=== PATIENT | male | born 1955 | race Caucasian/White ===

== ENCOUNTER 2020-03-30 08:59 | Outpatient (REF) | payer BC, SELFPAY | END 2020-03-30 09:00 | disposition home or self-care (01) | LOC: HO.LAB 08:59 | PROVIDERS: Visit Provider Internal Medicine | DX: Z20.828 Contact with and (suspected) exposure to other viral communicable diseases (principal) | CPT/HCPCS: C9803; U0003 ==

== ENCOUNTER 2020-06-02 12:42 | Outpatient (REF) | payer BC, SELFPAY ==
[2020-06-02 13:53] LABS: MANUAL DIFF FLAG NO
[2020-06-02 14:07] LABS: Basophils Absolute Auto 0.1 X10*3/uL (0.0-0.2); Basophils Percent Auto 0.8 % (0-2); Eosinophils Absolute Auto 0.3 X10*3/uL (0.0-0.4); Eosinophils Percent Auto 2.5 % (0-4); Hematocrit 49.4 % (42-52); Hemoglobin 16.2 g/dl (14.0-18.0); Imm Gran Abs Auto 0.04 X10*3/uL (0.00-0.03); Imm Gran Pct Auto 0.4 % (0.0-0.4); Lymphocytes Absolute Auto 4.1 X10*3/uL (1.2-4.9); Lymphocytes Percent Auto 38.6 % (20-40); Mean Corpuscular HGB Conc 32.8 g/dl (31.0-36.0); Mean Corpuscular Hemoglobin 30.7 pg (27.0-33.0); Mean Corpuscular Volume 93.7 fL (80-98); Mean Platelet Volume 10.9 fL (9.4-12.4); Monocytes Absolute Auto 0.7 X10*3/uL (0.1-1.2); Monocytes Percent Auto 6.8 % (2-11); Neutrophils Absolute Auto 5.4 X10*3/uL (2.0-8.3); Neutrophils Percent Auto 50.9 % (45-73); Platelet Count 311 X10*3/uL (160-400); Red Blood Count 5.27 X10*6/uL (4.60-5.80); Red Cell Distribution Width 13.7 % (11.0-16.0); White Blood Count 10.6 X10*3/uL (4.8-10.8)
[2020-06-02 14:31] LABS: Alanine Aminotransferase 13 U/L (0-40); Albumin Level 4.3 g/dL (3.5-5.0); Alkaline Phosphatase 109 U/L (39-117); Anion Gap 16 (12-20); Aspartate Amino Transferase 14 U/L (5-37); Bilirubin Direct 0.2 mg/dL (0.0-0.5); Bilirubin Total 0.6 mg/dL (0.0-1.0); Blood Urea Nitrogen 16 mg/dL (9-16); Calcium 9.3 mg/dL (8.4-10.2); Carbon Dioxide 25 mmol/L (22-29); Chloride 101 mmol/L (96-108); Cholesterol 226 mg/dL; Estimated Glomerular Filt Rate > 60; Glucose Fasting 97 mg/dL (60-99); HDL Cholesterol 41 mg/dL; LDL Cholesterol Calculated 156 mg/dl; Potassium 4.4 mmol/L (3.3-5.1); Sodium 138 mmol/L (135-145); Total Protein 7.5 g/dL (6.5-8.0); Triglycerides 148 mg/dL
[2020-06-02 14:41] LABS: TSH reflex Free T4 0.96 uIU/mL (0.32-4.0)
== END 2020-06-02 12:43 | disposition home or self-care (01) ==
LOC: HO.HMGCLDS 12:42
PROVIDERS: PCP Internal Medicine; Visit Provider Internal Medicine
DX: Z00.01 Encounter for general adult medical examination with abnormal findings (principal); R10.13 Epigastric pain
CPT/HCPCS: 36415; 80048; 80061; 80076; 84443; 85025

== ENCOUNTER 2022-02-03 15:10 | Outpatient (REF) | payer BC, SELFPAY ==
[2022-02-03 16:36] LABS: MANUAL DIFF FLAG NO
[2022-02-03 16:41] LABS: Basophils Absolute Auto 0.1 X10*3/uL (0.0-0.2); Basophils Percent Auto 0.9 % (0-2); Eosinophils Absolute Auto 0.1 X10*3/uL (0.0-0.4); Eosinophils Percent Auto 1.2 % (0-4); Hematocrit 47.2 % (42.0-52.0); Hemoglobin 15.5 g/dl (14.0-18.0); Imm Gran Abs Auto 0.02 X10*3/uL (0.00-0.03); Imm Gran Pct Auto 0.2 % (0.0-0.4); Lymphocytes Absolute Auto 3.5 X10*3/uL (1.2-4.9); Lymphocytes Percent Auto 38.1 % (20-40); Mean Corpuscular HGB Conc 32.8 g/dl (31.0-36.0); Mean Corpuscular Hemoglobin 30.3 pg (27.0-33.0); Mean Corpuscular Volume 92.4 fL (80.0-98.0); Mean Platelet Volume 10.9 fL (9.4-12.4); Monocytes Absolute Auto 0.5 X10*3/uL (0.1-1.2); Monocytes Percent Auto 5.6 % (2-11); Platelet Count 279 X10*3/uL (160-400); Red Blood Count 5.11 X10*6/uL (4.60-5.80); Red Cell Distribution Width 13.5 % (11.0-16.0); White Blood Count 9.2 X10*3/uL (4.8-10.8)
[2022-02-03 17:08] LABS: Alanine Aminotransferase 14 U/L (0-40); Albumin Level 4.5 g/dL (3.5-5.0); Alkaline Phosphatase 93 U/L (39-117); Anion Gap 17 (12-20); Aspartate Amino Transferase 16 U/L (5-37); Bilirubin Total 0.8 mg/dL (0.0-1.0); Blood Urea Nitrogen 9 mg/dL (9-16); Calcium 9.6 mg/dL (8.4-10.2); Carbon Dioxide 24 mmol/L (22-29); Chloride 103 mmol/L (96-108); Estimated Glomerular Filt Rate > 60; Glucose Random 83 mg/dL (60-115); Potassium 4.9 mmol/L (3.3-5.1); Sodium 139 mmol/L (135-145); Total Protein 7.5 g/dL (6.5-8.0)
[2022-02-05 07:11] LABS: LDL Cholesterol Direct 182 mg/dL (<100)
== END 2022-02-03 15:11 | disposition home or self-care (01) ==
LOC: HO.HMGCLDS 15:10
PROVIDERS: PCP Internal Medicine; Visit Provider Internal Medicine
DX: Z00.01 Encounter for general adult medical examination with abnormal findings (principal); I10 Essential (primary) hypertension; K21.9 Gastro-esophageal reflux disease without esophagitis; E78.9 Disorder of lipoprotein metabolism, unspecified
CPT/HCPCS: 36415; 80053; 83721; 84443; 85025

== ENCOUNTER 2022-08-26 08:19 | Outpatient (REF) | payer BC, SELFPAY ==
[2022-08-26 11:12] LABS: MANUAL DIFF FLAG NO
[2022-08-26 11:23] LABS: Basophils Absolute Auto 0.1 X10*3/uL (0.0-0.2); Basophils Percent Auto 0.9 % (0-2); Eosinophils Absolute Auto 0.3 X10*3/uL (0.0-0.4); Hematocrit 44.2 % (42.0-52.0); Hemoglobin 14.7 g/dl (14.0-18.0); Imm Gran Abs Auto 0.04 X10*3/uL (0.00-0.03); Imm Gran Pct Auto 0.4 % (0.0-0.4); Lymphocytes Absolute Auto 3.3 X10*3/uL (1.2-4.9); Lymphocytes Percent Auto 31.6 % (20-40); Mean Corpuscular HGB Conc 33.3 g/dl (31.0-36.0); Mean Corpuscular Volume 93.2 fL (80.0-98.0); Mean Platelet Volume 11.1 fL (9.4-12.4); Monocytes Absolute Auto 0.6 X10*3/uL (0.1-1.2); Monocytes Percent Auto 5.6 % (2-11); Neutrophils Absolute Auto 6.2 x10*3/uL (2.0-8.3); Neutrophils Percent Auto 58.5 % (45-73); Platelet Count 284 X10*3/uL (160-400); Red Blood Count 4.74 X10*6/uL (4.60-5.80); Red Cell Distribution Width 13.2 % (11.0-16.0); White Blood Count 10.5 X10*3/uL (4.8-10.8)
[2022-08-26 11:43] LABS: Alanine Aminotransferase 11 U/L (0-40); Alkaline Phosphatase 75 U/L (39-117); Anion Gap 13 (12-20); Aspartate Amino Transferase 12 U/L (5-37); Bilirubin Total 0.7 mg/dL (0.0-1.0); Blood Urea Nitrogen 16 mg/dL (9-16); Calcium 9.2 mg/dL (8.4-10.2); Carbon Dioxide 25 mmol/L (22-29); Chloride 105 mmol/L (96-108); Cholesterol 165 mg/dL; Estimated Glomerular Filt Rate > 60; Glucose Fasting 107 mg/dL (60-99); HDL Cholesterol 36 mg/dL; LDL Cholesterol Calculated 104 mg/dl; Sodium 139 mmol/L (135-145); Total Protein 6.5 g/dL (6.5-8.0); Triglycerides 129 mg/dL
== END 2022-08-26 08:20 | disposition home or self-care (01) ==
LOC: HO.HMGCLDS 08:19
PROVIDERS: PCP Internal Medicine; Visit Provider Internal Medicine
DX: K21.9 Gastro-esophageal reflux disease without esophagitis (principal); I10 Essential (primary) hypertension; E78.9 Disorder of lipoprotein metabolism, unspecified
CPT/HCPCS: 36415; 80053; 80061; 85025

== ENCOUNTER 2023-02-09 07:37 | Outpatient (AMB) | payer BC, SELFPAY ==
--- NOTE | 2023-02-09 07:40 | MHC.PC.OV ---
Vital Signs 02/09/23 07:42 Height 5 ft 8 in Weight 165 lb BMI 25.1 BP 138/68 Blood Pressure Location Rt brachial Position Sitting Pulse 81 Pulse Source Pulse Oximeter Pulse Oximetry (%) 99 Oxygen Delivery Method Room Air Intake Visit Reasons: Annual PE Allergies No Known Allergies Allergy (Verified 02/09/23 07:41) Medication List - Last Reconciled 02/09/23 by Trevro Jacob MD [Blood pressure monitor As directed] losartan-hydrochlorothiazide 50-12.5 mg 1 tab PO DAILY 90 days omeprazole 20 mg PO DAILY 90 days simvastatin 40 mg PO DAILY 90 days Tobacco use date assessed: 02/09/23 Fall risk assessment: No Falls in past year Last assessed Fall Risk: 02/09/23 Dental Screening Dental Screen Date: 02/09/23 Did you have a dental visit in the last 12 months?: No Was dental information given to patient?: Patient declined HPI Annual PE HPI Details Patient is 68-year-old gentleman came in today for physical examination Blood pressure is stable patient is taking losartan hydrochlorothiazide 50-12.5 mg tolerating medication no side effects GERD is stable with omeprazole Patient is on simvastatin 40 mg for lipid control He was supposed to have labs done before this visit but he did not Explained to patient that he comes in to see me every 6 months and before he sees me he needs to do blood test fasting Colonoscopy: Patient declined Cologuard: Patient declined Tobacco dependence, he is trying to cut down currently smoking little less than half a pack a day PFSH Family History Sister Breast cancer Social History Housing: House Alcohol intake: former Patient Tobacco Use Status: Current everyday Tobacco user Cigarette Packs Per Day: 0.5 Cigarettes Per Day: 10 e-Cigarette/Vaping Use: Never Used Current occupational status: employed Cognitive needs: No Hearing needs: No Vision needs: Yes Questionnaire PHQ-9 Over the last 2 weeks, how often have you been bothered by any of the following problems? 1. Little interest or pleasure in doing things: not at all 2. Feeling down, depressed, or hopeless: not at all 3. Trouble falling or staying asleep, or sleeping too much: not at all 4. Feeling tired or having little energy: not at all 5. Poor appetite or overeating: not at all 6. Feeling bad about yourself - or that you are a failure or have let yourself or your family down: not at all 7. Trouble concentrating on things, such as reading the newspaper or watching television: not at all 8. Moving or speaking so slowly that other people could have noticed. Or the opposite - being so fidgety or restless that you have been moving around a lot more than usual: not at all 9. Thoughts that you would be better off or of hurting yourself in some way: not at all Total score: 0 Depression Screening Interpretation: Negative Depression Screening Done: Yes 15777 - PHQ-9 Billing: Yes Source: Developed by Drs. Ganga Green, Chayito Godinez, Yves Messer and colleagues, with an educational cee from [employer]. Th[employer] Questionnaire I am a: Patient What is your living situation today?: I have a steady place to live Within the past 12 months, did the food you bought not last and you didn't have the money to get more?: Never true Within the past 12 months, did you worry whether your food would run out before you got money to buy more?: Never true Do you have trouble paying for medicines?: No Do you have trouble getting transportation to medical appointments?: No Do you have trouble paying your heating and electricity bill?: No Do you have trouble taking care of your child, family member or friend?: No Do you have trouble with day-to-day activities such as bathing, preparing meals, shopping, managing finances, etc.?: No Are you currently unemployed and looking for a job?: No Are you interested in more education?: No Please select the resources that you would like help with: None Currently or been in a relationship where the following occur: no concerns reported AUDIT C Alcohol Use Questionnaire (AUDIT-C) 1. How often do you have a drink containing alcohol?: Never Total Score: 0 Review of Systems Const Denies chills, Denies fever(s) and Denies headache(s) Eyes Denies blurry vision ENT Denies headache(s), Denies nasal discharge, Denies nasal obstruction, Denies odynophagia and Denies sinus pain Card Denies chest pain at rest and Denies chest pain with activity Resp Denies cough and Denies hemoptysis GI Denies diarrhea, Denies odynophagia, Denies vomiting and Denies hematemesis Reports as per HPI Musc Denies abnormal gait Skin/Breast Reports as per HPI Neuro Denies Neuro-related abnormal movements, Denies Abnormal speech present, Denies abnormal gait, Denies headache(s) and Denies Sensory deficit (Neuro) Psych Denies mood swings and Denies paranoia Endo Reports as per HPI Michael/Lymph Reports as per HPI Aller/Immun Reports as per HPI Physical exam (Primary Care) Vital Signs: Last Vital Signs Pulse 81 02/09/23 07:42 BP 138/68 02/09/23 07:42 Pulse Ox 99 02/09/23 07:42 Oxygen Delivery Method Room Air 02/09/23 07:42 BMI result Body Mass Index 25.1 Tobacco/Smoking Status: Tobacco use Status Tobacco use date assessed 02/09/23 02/09/23 07:42 Patient Tobacco Use Status Current everyday Tobacco 02/09/23 07:42 e-Cigarette/Vaping Use Never Used 02/09/23 07:42 Depression Screening Interpretation: Negative Currently or been in a relationship where the following occur: no concerns reported Const General: cooperative, comfortable and no acute distress Orientation/consciousness: patient oriented x3 HENMT Head: Yes normocephalic and Yes atraumatic Eyes General: appearance normal, both eyes and all related structures Pupils: Equal, round and reactive pupils present EOM: EOMs intact bilaterally Neck Neck: Yes supple and No lymphadenopathy Thyroid: Thyroid normal Lymphatic: no lymphadenopathy noted Resp Effort & Inspection: normal respiratory effort and able to speak in complete sentences Auscultation: clear to auscultation bilaterally Cardio Heart sounds: S1 normal heart sound present and S2 normal heart sound present GI Palpation (GI): Soft to palpation and nontender Auscultation: normal bowel sounds General: Yes no CVA tenderness Back/Spine/Pelvis Back: no CVA tenderness Skin General skin exam: elasticity normal and turgor normal Neuro General: patient oriented x3 and gait normal Cranial nerves: Yes Equal, round and reactive pupils present Speech: No Abnormal speech present Sensory Exam: No Sensory deficit (Neuro) Coordination: tandem gait normal and Romberg test negative Extrem General: Yes normal exam except as noted and No edema Assessment and Plan Assessment & Plan (1) Encounter for general adult medical examination with abnormal findings: Code(s): Z00.01 - Encounter for general adult medical examination with abnormal findings (2) Hypertension, essential: Code(s): I10 - Essential (primary) hypertension (3) Nicotine dependence with current use: Code(s): F17.200 - Nicotine dependence, unspecified, uncomplicated (4) Chronic GERD: Code(s): K21.9 - Gastro-esophageal reflux disease without esophagitis (5) Lipid disorder: Code(s): E78.9 - Disorder of lipoprotein metabolism, unspecified (6) Colonoscopy refused: Code(s): Z53.20 - Procedure and treatment not carried out because of patient's decision for unspecified reasons Plan Patient is 68-year-old gentleman came in today for physical examination Blood pressure is stable patient is taking losartan hydrochlorothiazide 50-12.5 mg tolerating medication no side effects GERD is stable with omeprazole Patient is on simvastatin 40 mg for lipid control He was supposed to have labs done before this visit but he did not Explained to patient that he comes in to see me every 6 months and before he sees me he needs to do blood test fasting Colonoscopy: Patient declined Cologuard: Patient declined Tobacco dependence, he is trying to cut down currently smoking little less than half a pack a day Orders: Orders Comprehensive [place]. Panel Fast 6 Months E78.9 - Disorder of lipoprotein metabolism, unspecified, I10 - Essential (primary) hypertension Lipid Panel 6 Months E78.9 - Disorder of lipoprotein metabolism, unspecified, I10 - Essential (primary) hypertension Medications: Refilled omeprazole 20 mg PO DAILY 90 caps 1RF 90 days Coding Level of Care Code Est Pt Prev Care >65y(96827) Diagnoses Encounter for general adult medical examination with abnormal findings Z00.01 Hypertension, essential I10 Nicotine dependence with current use F17.200 Chronic GERD K21.9 Lipid disorder E78.9 Colonoscopy refused Z53.20
[2023-02-09 07:42] VITALS: BP 138/68; PULSE 81; O2SAT 99; BMI 25.1
== END 2023-02-09 08:09 | disposition home or self-care (01) ==
PROVIDERS: Visit Provider Internal Medicine
DX: Z00.01 Encounter for general adult medical examination with abnormal findings (principal); I10 Essential (primary) hypertension; F17.200 Nicotine dependence, unspecified, uncomplicated; K21.9 Gastro-esophageal reflux disease without esophagitis; E78.9 Disorder of lipoprotein metabolism, unspecified; Z53.20 Procedure and treatment not carried out because of patient's decision for unspecified reasons
CPT/HCPCS: 99397

== ENCOUNTER 2023-02-16 07:47 | Outpatient (REF) | payer BC, SELFPAY ==
[2023-02-16 11:30] LABS: MANUAL DIFF FLAG NO
[2023-02-16 11:38] LABS: Basophils Absolute Auto 0.1 X10*3/uL (0.0-0.2); Basophils Percent Auto 1.1 % (0-2); Eosinophils Absolute Auto 0.4 X10*3/uL (0.0-0.4); Eosinophils Percent Auto 4.4 % (0-4); Hematocrit 42.3 % (42.0-52.0); Imm Gran Abs Auto 0.04 X10*3/uL (0.00-0.03); Imm Gran Pct Auto 0.4 % (0.0-0.4); Lymphocytes Percent Auto 32.3 % (20-40); Mean Corpuscular HGB Conc 33.1 g/dl (31.0-36.0); Mean Corpuscular Hemoglobin 31.3 pg (27.0-33.0); Mean Corpuscular Volume 94.4 fL (80.0-98.0); Monocytes Absolute Auto 0.5 X10*3/uL (0.1-1.2); Monocytes Percent Auto 5.9 % (2-11); Neutrophils Absolute Auto 5.2 x10*3/uL (2.0-8.3); Neutrophils Percent Auto 55.9 % (45-73); Platelet Count 265 X10*3/uL (160-400); Red Blood Count 4.48 X10*6/uL (4.60-5.80); Red Cell Distribution Width 13.5 % (11.0-16.0); White Blood Count 9.2 X10*3/uL (4.8-10.8)
[2023-02-16 12:24] LABS: Alanine Aminotransferase 12 U/L (0-40); Albumin Level 3.9 g/dL (3.5-5.0); Alkaline Phosphatase 72 U/L (39-117); Anion Gap 12 (12-20); Aspartate Amino Transferase 15 U/L (5-37); Bilirubin Total 0.8 mg/dL (0.0-1.0); Blood Urea Nitrogen 15 mg/dL (9-16); Calcium 9.5 mg/dL (8.4-10.2); Carbon Dioxide 26 mmol/L (22-29); Chloride 104 mmol/L (96-108); Cholesterol 147 mg/dL (<200); Estimated Glomerular Filt Rate > 60; Glucose Fasting 99 mg/dL (60-99); HDL Cholesterol 38 mg/dL (>40); LDL Cholesterol Calculated 90 mg/dL (<100); Potassium 4.4 mmol/L (3.3-5.1); Sodium 138 mmol/L (135-145); Total Protein 6.9 g/dL (6.5-8.0); Triglycerides 95 mg/dL (<150)
== END 2023-02-16 07:48 | disposition home or self-care (01) ==
LOC: HO.HMGCLDS 07:47
PROVIDERS: PCP Internal Medicine; Visit Provider Internal Medicine
DX: K21.9 Gastro-esophageal reflux disease without esophagitis (principal); E78.9 Disorder of lipoprotein metabolism, unspecified; I10 Essential (primary) hypertension; Z72.0 Tobacco use
CPT/HCPCS: 36415; 80053; 80061; 85025

== ENCOUNTER 2023-06-08 10:41 | Outpatient (AMB) | payer BC, SELFPAY ==
--- NOTE | 2023-06-08 10:45 | MHC.OFFVIS ---
Intake Intake Visit Reasons: Erectile Dysfunction Intake Note: New Patient presents today for initial visit for erectile dysfunction Urology Medications: none Blood Thinner: none Diabetic: Biazzi Nitrator Operator Required: No Accompanied by: Allergies No Known Allergies Allergy (Verified 06/08/23 11:07) Medication List - Last Reconciled 06/08/23 by MANJULA EscalanteBC [Blood pressure monitor As directed] losartan-hydrochlorothiazide 50-12.5 mg 1 tab PO DAILY 90 days omeprazole 20 mg PO DAILY 90 days sildenafil (Viagra) 100 mg PO DAILY 90 days simvastatin 40 mg PO DAILY 90 days HPI HPI Comments History of Present Illness Details Rodrigo is a very pleasant 68-year-old male patient of Dr. Jacob who was accompanied by his at today's office visit. He has a past medical history of hypertension, GERD, erectile dysfunction, hyperlipidemia, and nicotine dependence. He presents to the office today as a new patient for erectile dysfunction. In discussion with the patient today reports having followed up with his PCP in discussing his longstanding history of erectile dysfunction and requesting Viagra however referral was made for urology for further assessment evaluation. He reports having trialed Viagra in the past from his brother who has shared his prescription with him and feels this works for him. Discussed at length potential causes of erectile dysfunction. Discussed further workup at length however patient declines. When asked he denies any bothersome urinary issues or concerns. He denies urinary urgency, urinary frequency, incontinence, nocturia, hematuria, dysuria, foul smelling urine, changes to urinary stream, flank pain, fever, and or chills. When asked he denies having had checkup for his prostate with his PCP. Discussed doing so he is agreeable. MECHE offered however deferred. Will obtain PSA. In office urinalysis results reviewed with the patient today. Discussed at length lifestyle modifications to assist with erectile dysfunction. He otherwise offers no other issues or concerns at this time. [facility] Family History Sister Breast cancer Social History Housing: House Alcohol intake: former Patient Tobacco Use Status: Current everyday Tobacco user Cigarette Packs Per Day: 0.5 Cigarettes Per Day: 10 e-Cigarette/Vaping Use: Never Used Current occupational status: employed Cognitive needs: No Hearing needs: No Vision needs: Yes Review of Systems Eyes Reports no additional complaints ENT Reports no additional complaints Card Reports as per HPI Resp Reports no additional complaints GI Reports as per HPI Reports as per HPI Musc Reports no additional complaints Neuro Reports no additional complaints Psych Reports no additional complaints Endo Reports no additional complaints Michael/Lymph Reports no additional complaints Aller/Immun Reports no additional complaints Physical Exam Const General: cooperative, comfortable, no acute distress, well developed, alert and awake Nutritional Appearance: thin Orientation/consciousness: patient oriented x3 Limitations: no limitations HEENT Head: Yes normal to inspection, Yes normocephalic and Yes atraumatic Ears: hearing grossly normal bilaterally Eyes General: appearance normal, both eyes and all related structures Neck Neck: Yes normal visual inspection and Yes trachea midline Chest Chest palpation & inspection: normal inspection of the chest Resp Effort & Inspection: normal respiratory effort and able to speak in complete sentences Cardio Rate: regular rate GI Inspection: Yes normal to inspection General: Yes no CVA tenderness Back/Spine/Pelvis Back: no CVA tenderness Skin General skin exam: no rashes or lesions noted Neuro General: patient oriented x3 Extrem General: Yes normal to inspection Psych Appearance: grossly normal and well kempt Mental Status: mental status grossly normal Speech and movement: Normal speech and movement present and Clear speech present Affect: normal affect Attitude: cooperative Thought process: Normal thought process present Thought content: Normal thought content present Insight: Fair insight present (Psych) Judgement: Fair judgement present (Psych) Results AMB Urinalysis, Automated UA Leukoctes 70 Thuy/uL Last Edit by Inez Ingram [facility] on 06/08/23 10:58 UA Nitrite Negative Last Edit by Inez Ingramjose Ingram [facility] on 06/08/23 10:58 UA Urobilinogen 0.2 mg/dL Last Edit by Inez Ingramjose Ingram [facility] on 06/08/23 10:58 UA Protein 0 mg/dL Last Edit by Inez Ingramjose Ingram [facility] on 06/08/23 10:58 UA pH 6.5 Last Edit by Inez Ingramjose Ingram [facility] on 06/08/23 10:58 UA Blood 0 Aram/uL Last Edit by Inez Ingramjose Ingram [facility] on 06/08/23 10:58 UA Specific [place] 1.020 Last Edit by Inez Ingram [facility] on 06/08/23 10:58 UA Ketone Negative Last Edit by Inez Ingram CMA on 06/08/23 10:58 UA Bilirubin 0 mg/dL Last Edit by Inez Ingram CMA on 06/08/23 10:58 UA Glucose 0 mg/dL Last Edit by Inez Ingram CMA on 06/08/23 10:58 Results Reviewed Results Reviewed: Laboratory Last Values Urine pH (Auto) 6.5 06/08/23 10:56 Specific [place] (Auto) 1.020 06/08/23 10:56 Urine Protein (Auto) 0 mg/dL 06/08/23 10:56 Glucose (UA)(Auto) 0 mg/dL 06/08/23 10:56 Urine Ketones (Auto) Negative 06/08/23 10:56 Urine Blood (Auto) 0 Aram/uL 06/08/23 10:56 Urine Nitrite (Auto) Negative 06/08/23 10:56 Urine Bilirubin (Auto) 0 mg/dL 06/08/23 10:56 Urine Urobilinogen (Auto) 0.2 mg/dL 06/08/23 10:56 Leukocyte Esterase (Auto) 70 Thuy/uL 06/08/23 10:56 Assessment & Plan Assessment & Plan (1) Erectile disorder: Code(s): N52.9 - Male erectile dysfunction, unspecified Plan In office urinalysis results reviewed with the patient today; as noted above. Discussed further workup of erectile dysfunction with labs however patient declines at this time. He denies any bothersome urinary issues. He reports be happy with current voiding parameters. MECHE offered however deferred. Will obtain PSA Prescription provided for Viagra Discussed at length lifestyle modifications to assist with erectile dysfunction Discussed and educated on the importance of limiting/quitting nicotine dependence for overall health and well-being. Follow-up in 3 months with lab to be completed prior; or sooner with any issues, concerns, and or questions. Orders: Orders Prostate Specific Antigen Today N52.9 - Male erectile dysfunction, unspecified AMB Urinalysis Automated Today R33.9 - Retention of urine, unspecified Medications: New sildenafil (Viagra) [id number] [facility] [id number] Member [id number] 100 mg PO DAILY 90 days 60 tabs 0RF sildenafil (Viagra) Take one tablet one hour prior to sexual activity not to exceed more than 2-3 tablets per week [id number] [facility] [id number] Member [id number] 100 mg PO .PRN 90 days 48 tabs 0RF Patient Instructions: The patient had an opportunity to ask questions regarding the treatment plan. All questions were answered. Physical exam, labs, and imaging were discussed and reviewed in detail. As well as risks, benefits, and discussion of treatment choices. No major barriers to understanding were identified. The patient expressed understanding and agreement with the above treatment plan. The patient was made aware they should contact our office by phone for worsening of their current condition, the appearance of new symptoms, or with any questions or concerns. Compliance is encouraged with any medications and follow up testing that is ordered. It is a privilege to be allowed the opportunity to participate in? your urological care.? Again, if you have any questions or concerns If you have any questions or concerns please do not hesitate to contact me. The office is [phone]. This note is constructed using voice recognition software. While every effort has been made to ensure accuracy worm sorter errors may have been included. Yours sincerely, LORENZA Escalante Coding Level of Care Code New Pt Level 4 (49357) Diagnoses Erectile disorder N52.9
== END 2023-06-08 13:43 | disposition home or self-care (01) ==
PROVIDERS: PCP Internal Medicine; Referring Provider Internal Medicine; Visit Provider Nurse Practitioner Family
DX: R33.9 Retention of urine, unspecified (principal); N52.9 Male erectile dysfunction, unspecified
CPT/HCPCS: 99204

== ENCOUNTER → 2023-06-08 10:41 | Outpatient (BNVA) | payer BC, SELFPAY | PROVIDERS: PCP Internal Medicine; Visit Provider Nurse Practitioner Family | DX: N52.9 Male erectile dysfunction, unspecified (principal); R33.9 Retention of urine, unspecified | CPT/HCPCS: 81003 ==

== ENCOUNTER 2023-10-12 10:15 | Outpatient (AMB) | payer OTHER, SELFPAY ==
--- NOTE | 2023-10-12 10:20 | A.OFFPC_ITS ---
Vital Signs 10/12/23 10:21 Height 5 ft 8 in Weight 177 lb 4 oz BMI 26.9 BP 138/70 Blood Pressure Location Lt brachial Pulse 86 Pulse Source Pulse Oximeter Pulse Oximetry (%) 99 Oxygen Delivery Method Room Air Intake Visit Reasons: F/U~ Allergies No Known Allergies Allergy (Verified 10/12/23 10:22) Medication List - Last Reconciled 10/12/23 by Trevor Jacob MD [Blood pressure monitor As directed] losartan-hydrochlorothiazide 50-12.5 mg 1 tab PO DAILY omeprazole 20 mg PO DAILY 90 days sildenafil (Viagra) 100 mg PO .PRN 90 days simvastatin 40 mg PO DAILY Tobacco use date assessed: 10/12/23 Fall risk assessment: No Falls in past year Last assessed Fall Risk: 10/12/23 Dental Screening Dental Screen Date: 10/12/23 Did you have a dental visit in the last 12 months?: No Did you have a dental problem in the last 6 months where you did not have access to dental care?: No Was dental information given to patient?: No HPI F/U~ HPI Details Patient is 68-year-old gentleman came in for his six-month follow-up appointment with his girlfriend Continued to smoke 1 pack per day, we talked about it today again I would urge him to stop as soon as possible Blood pressure is 138/70 patient is taking losartan hydrochlorothiazide 50-12.5 mg and tolerating medication He takes simvastatin 40 mg for lipid disorder Patient is on omeprazole for chronic GERD and is doing well He offers no complaints today but he forgot to do labs He has physical exam appointment in March, advised patient to have labs every time he comes He is coming in every 6 months [facility] Family History Sister Breast cancer Social History Housing: House Alcohol intake: former Patient Tobacco Use Status: Current everyday Tobacco user Cigarette Packs Per Day: 0.5 Cigarettes Per Day: 10 e-Cigarette/Vaping Use: Never Used Current occupational status: employed Cognitive needs: No Hearing needs: No Vision needs: Yes Questionnaire PHQ-9 Over the last 2 weeks, how often have you been bothered by any of the following problems? 1. Little interest or pleasure in doing things: not at all 2. Feeling down, depressed, or hopeless: not at all 3. Trouble falling or staying asleep, or sleeping too much: not at all 4. Feeling tired or having little energy: not at all 5. Poor appetite or overeating: not at all 6. Feeling bad about yourself - or that you are a failure or have let yourself or your family down: not at all 7. Trouble concentrating on things, such as reading the newspaper or watching television: not at all 8. Moving or speaking so slowly that other people could have noticed. Or the opposite - being so fidgety or restless that you have been moving around a lot more than usual: not at all 9. Thoughts that you would be better off or of hurting yourself in some way: not at all Total score: 0 Depression Screening Interpretation: Negative Depression Screening Done: Yes 48489 - PHQ-9 Billing: Yes Source: Developed by Drs. Ganga Green, Chayito Godinez, Yves Messer and colleagues, with an educational cee from [employer]. Thrive Questionnaire Date Thrive assessed: 10/12/23 I am a: Patient What is your living situation today?: I have a steady place to live Within the past 12 months, did the food you bought not last and you didn't have the money to get more?: Never true Within the past 12 months, did you worry whether your food would run out before you got money to buy more?: Never true Do you have trouble paying for medicines?: No Do you have trouble getting transportation to medical appointments?: No Do you have trouble paying your heating and electricity bill?: No Do you have trouble taking care of your child, family member or friend?: No Do you have trouble with day-to-day activities such as bathing, preparing meals, shopping, managing finances, etc.?: No Are you currently unemployed and looking for a job?: No Are you interested in more education?: No Please select the resources that you would like help with: None Currently or been in a relationship where the following occur: no concerns reported THRIVE Score: 0 AUDIT C Alcohol Use Questionnaire (AUDIT-C) 1. How often do you have a drink containing alcohol?: Never 3. How often do you have six or more drinks on one occasion?: Never Total Score: 0 Score Reviewed/Action Taken: Yes CARLOZ-7 AMB Questionnaire CARLOZ-7 Date CARLOZ - 7 assessed: 10/12/23 Feeling nervous, anxious, or on edge: 0 = Not at all Not being able to stop or control worryin = Not at all Worrying too much about different things: 0 = Not at all Trouble relaxin = Not at all Being so restless that it is hard to sit still: 0 = Not at all Becoming easily annoyed or irritable: 0 = Not at all Feeling afraid as if something awful might happen: 0 = Not at all Total CARLOZ-7 score (0-4 normal; 5-9 mild; 10-14 moderate; 15-21 severe): 0 Source: Developed by Drs. Ganga Green, Chayito Godinez, Yves Messer and colleagues, with an educational cee from [employer]. CARLOZ-7 Assessment Billing CARLOZ-7 Assessment Tool: CARLOZ-7 Assessment 07106 Review of Systems Const Denies chills and Denies fever(s) ENT Denies epistaxis and Denies nasal discharge Card Denies chest pain Resp Denies chest congestion, Denies cough and Denies hemoptysis GI Denies diarrhea and Denies nausea Skin/Breast Denies rash Neuro Reports no additional complaints Psych Reports no additional complaints Endo Reports no additional complaints Physical exam (Primary Care) Vital Signs: Last Vital Signs Pulse 86 10/12/23 10:21 BP 138/70 10/12/23 10:21 Pulse Ox 99 10/12/23 10:21 Oxygen Delivery Method Room Air 10/12/23 10:21 BMI result Body Mass Index 26.9 Tobacco/Smoking Status: Tobacco use Status Tobacco use date assessed 10/12/23 10/12/23 10:23 Patient Tobacco Use Status Current everyday Tobacco 10/12/23 10:23 e-Cigarette/Vaping Use Never Used 10/12/23 10:23 PHQ-9: PHQ-9 Score PHQ-9: Total score 0 10/12/23 10:34 Depression Screening Interpretation: Negative Thrive Assessment: Date of Thrive Assessment Date Thrive assessed 10/12/23 10/12/23 10:34 Currently or been in a relationship where the following occur: no concerns reported Const General: cooperative, comfortable and no acute distress Orientation/consciousness: patient oriented x3 HENMT Head: Yes normocephalic Eyes General: appearance normal, both eyes and all related structures Neck Neck: Yes supple Resp Effort & Inspection: normal respiratory effort, no cough and no stridor Cardio Rhythm: regular rhythm Heart sounds: S1 normal heart sound present and S2 normal heart sound present Skin General skin exam: turgor normal Neuro General: patient oriented x3, tone normal and moves all extremities Extrem Right lower extremity: no edema Left lower extremity: no edema Assessment and Plan Assessment & Plan (1) Hypertension, essential: Code(s): I10 - Essential (primary) hypertension (2) Lipid disorder: Code(s): E78.9 - Disorder of lipoprotein metabolism, unspecified (3) Nicotine dependence with current use: Code(s): F17.200 - Nicotine dependence, unspecified, uncomplicated (4) Erectile disorder: Comment: Management through Urology Code(s): N52.9 - Male erectile dysfunction, unspecified (5) Dyspepsia: Code(s): R10.13 - Epigastric pain (6) Chronic GERD: Code(s): K21.9 - Gastro-esophageal reflux disease without esophagitis (7) Overweight (BMI 25.0-29.9): Code(s): E66.3 - Overweight Plan Patient is 68-year-old gentleman came in for his six-month follow-up appointment with his girlfriend Continued to smoke 1 pack per day, we talked about it today again I would urge him to stop as soon as possible Blood pressure is 138/70 patient is taking losartan hydrochlorothiazide 50-12.5 mg and tolerating medication He takes simvastatin 40 mg for lipid disorder Patient is on omeprazole for chronic GERD and is doing well He offers no complaints today but he forgot to do labs He has physical exam appointment in March, advised patient to have labs every time he comes He is coming in every 6 months ED management through Urology Patient is also slightly overweight need to lose few lb Orders: Orders Comprehensive Foster. Panel Fast 6 Months E78.9 - Disorder of lipoprotein metabolism, unspecified, I10 - Essential (primary) hypertension Complete Blood Count Auto Diff 6 Months E78.9 - Disorder of lipoprotein metabolism, unspecified, I10 - Essential (primary) hypertension Lipid Panel 6 Months E78.9 - Disorder of lipoprotein metabolism, unspecified, I10 - Essential (primary) hypertension Coding Level of Care Code Est Pt Level 4 (70176) Complex EM visit Add On G2211 Diagnoses Hypertension, essential I10 Lipid disorder E78.9 Nicotine dependence with current use F17.200 Erectile disorder N52.9 Dyspepsia R10.13 Chronic GERD K21.9 Overweight (BMI 25.0-29.9) E66.3 Additional Codes CARLOZ-7 Assessment Billing - CARLOZ-7 Assessment Tool: CARLOZ-7 Assessment 78222 ([id number])
[2023-10-12 10:21] VITALS: BP 138/70; PULSE 86; O2SAT 99; BMI 26.9
== END 2023-10-12 10:34 | disposition home or self-care (01) ==
PROVIDERS: PCP Internal Medicine; Visit Provider Internal Medicine
DX: I10 Essential (primary) hypertension (principal); E78.9 Disorder of lipoprotein metabolism, unspecified; F17.200 Nicotine dependence, unspecified, uncomplicated; N52.9 Male erectile dysfunction, unspecified; R10.13 Epigastric pain; K21.9 Gastro-esophageal reflux disease without esophagitis; E66.3 Overweight
CPT/HCPCS: 99214; G2211

== ENCOUNTER 2023-11-17 08:13 | Outpatient (REF) | payer OTHER, SELFPAY ==
[2023-11-17 11:44] LABS: Alanine Aminotransferase 16 U/L (0-40); Albumin Level 3.9 g/dL (3.5-5.0); Alkaline Phosphatase 82 U/L (39-117); Anion Gap 15 (12-20); Aspartate Amino Transferase 16 U/L (5-37); Bilirubin Total 0.6 mg/dL (0.0-1.0); Blood Urea Nitrogen 13 mg/dL (9-16); Calcium 9.8 mg/dL (8.4-10.2); Carbon Dioxide 24 mmol/L (22-29); Chloride 106 mmol/L (96-108); Cholesterol 159 mg/dL (<200); Estimated Glomerular Filt Rate > 60; Glucose Fasting 94 mg/dL (60-99); HDL Cholesterol 35 mg/dL (>40); LDL Cholesterol Calculated 96 mg/dL (<100); Potassium 4.5 mmol/L (3.3-5.1); Sodium 140 mmol/L (135-145); Total Protein 7.2 g/dL (6.5-8.0); Triglycerides 144 mg/dL (<150)
== END 2023-11-17 08:14 | disposition home or self-care (01) ==
LOC: HO.HMGCLDS 08:13
PROVIDERS: PCP Internal Medicine; Visit Provider Internal Medicine
DX: E78.9 Disorder of lipoprotein metabolism, unspecified (principal); I10 Essential (primary) hypertension
CPT/HCPCS: 36415; 80053; 80061

== ENCOUNTER 2024-01-29 07:53 | Outpatient (AMB) | payer OTHER, SELFPAY ==
--- NOTE | 2024-01-29 08:13 | A.OFFVIS_ITS ---
Intake Visit Reasons: PSA f/u(set) Intake Note: Patient presents today for follow up visit on: erectile dysfunction Urology Medications: sildenafil (patient stopped due to medication not working) Blood Thinner: none Diabetic: none Renal Medicine Physician Required: No Accompanied by: Allergies No Known Allergies Allergy (Verified 01/29/24 08:22) HPI Comments Details: Rodrigo is a very pleasant 69-year-old male patient of Dr. Jacob who was accompanied by his at today's office visit. He has a past medical history of hypertension, GERD, erectile dysfunction, hyperlipidemia, and nicotine dependence. He presents to the office today for follow-up of his erectile dysfunction. Of note, patient was seen approximately 8 months ago at which time well relatively a prescription was provided for p.r.n. sildenafil as patient reported using this in the past with good effect. In discussion with the patient today he reports no improvement in maintaining his erections with p.r.n. dosing of sildenafil and is requesting branded Viagra as he feels this helped him previously. Recent PSA results reviewed with the patient today.01/14 1.8. Discussed at length potential causes of erectile dysfunction. When asked he denies any bothersome urinary issues or concerns. He denies urinary urgency, urinary frequency, incontinence, nocturia, hematuria, dysuria, foul smelling urine, changes to urinary stream, flank pain, fever, and or chills. In office urinalysis results reviewed with the patient today. Discussed at length lifestyle modifications to assist with erectile dysfunction. He otherwise offers no other issues or concerns at this time. [facility] Family History Sister Breast cancer Social History Housing: House Alcohol intake: former Patient Tobacco Use Status: Current everyday Tobacco user Cigarette Packs Per Day: 0.5 Cigarettes Per Day: 10 e-Cigarette/Vaping Use: Never Used Current occupational status: employed Cognitive needs: No Hearing needs: No Vision needs: Yes Review of Systems Eyes Reports no additional complaints ENT Reports no additional complaints Card Reports as per HPI Resp Reports no additional complaints GI Reports as per HPI Reports as per HPI Musc Reports no additional complaints Neuro Reports no additional complaints Psych Reports no additional complaints Endo Reports no additional complaints Michael/Lymph Reports no additional complaints Aller/Immun Reports no additional complaints Physical Exam Const General: cooperative, comfortable, no acute distress, well developed, alert and awake Nutritional Appearance: thin Orientation/consciousness: patient oriented x3 Limitations: no limitations HEENT Head: Yes normal to inspection, Yes normocephalic and Yes atraumatic Ears: hearing grossly normal bilaterally Eyes General: appearance normal, both eyes and all related structures Neck Neck: Yes normal visual inspection and Yes trachea midline Chest Chest palpation & inspection: normal inspection of the chest Resp Effort & Inspection: normal respiratory effort and able to speak in complete sentences Cardio Rate: regular rate GI Inspection: Yes normal to inspection General: Yes no CVA tenderness Back/Spine/Pelvis Back: no CVA tenderness Skin General skin exam: no rashes or lesions noted Neuro General: patient oriented x3 Extrem General: Yes normal to inspection Psych Appearance: grossly normal and well kempt Mental Status: mental status grossly normal Speech and movement: Normal speech and movement present and Clear speech present Affect: normal affect Attitude: cooperative Thought process: Normal thought process present Thought content: Normal thought content present Insight: Fair insight present (Psych) Judgement: Fair judgement present (Psych) Results AMB Urinalysis, Automated UA Leukoctes 70 Thuy/uL Last Edit by Sivan Barbosa on 01/29/24 08:24 UA Nitrite Last Edit by Ap[employer] Man Gaming[employer]o Barbosa on 01/29/24 08:24 UA Urobilinogen 0.2 mg/dL Last Edit by [employer] Barbosa on 01/29/24 08:24 UA Protein 0 mg/dL Last Edit by [employer] Barbosa on 01/29/24 08:24 UA pH 6.0 Last Edit by Sivan Barbosa on 01/29/24 08:24 UA Blood 0 Aram/uL Last Edit by Sivan Barbosa on 01/29/24 08:24 UA Specific Hecker 1.020 Last Edit by ApGreen Man [employer] Barbosa on 01/29/24 08:24 UA Ketone Last Edit by Sivan Barbosa on 01/29/24 08:24 UA Bilirubin 0 mg/dL Last Edit by Sivan Barbosa on 01/29/24 08:24 UA Glucose 0 mg/dL Last Edit by Sivan Barbosa on 01/29/24 08:24 Results Reviewed Results Reviewed: Laboratory Last Values Urine pH (Auto) 6.0 01/29/24 08:23 Specific Hecker (Auto) 1.020 01/29/24 08:23 Urine Protein (Auto) 0 mg/dL 01/29/24 08:23 Glucose (UA)(Auto) 0 mg/dL 01/29/24 08:23 Urine Blood (Auto) 0 Aram/uL 01/29/24 08:23 Urine Bilirubin (Auto) 0 mg/dL 01/29/24 08:23 Urine Urobilinogen (Auto) 0.2 mg/dL 01/29/24 08:23 Leukocyte Esterase (Auto) 70 Thuy/uL 01/29/24 08:23 Assessment & Plan Assessment & Plan (1) Erectile disorder: Comment: Management through Urology Code(s): N52.9 - Male erectile dysfunction, unspecified Category: Medical Plan In office urinalysis results reviewed with the patient today; as noted above. He denies any bothersome urinary issues. He reports be happy with current voiding parameters. Recent PSA results reviewed with the patient today Prescription provided for branded Viagra Discussed at length lifestyle modifications to assist with erectile dysfunction Discussed and educated on the importance of limiting/quitting nicotine dependence for overall health and well-being. Follow-up in 3 months with lab to be completed prior; or sooner with any issues, concerns, and or questions. Orders: Orders AMB Urinalysis Automated Today Z13.9 - Encounter for screening, unspecified Medications: New Viagra (sildenafil) administer 30 minutes to 4 hours before activity BIN N Group [facility] [id number] 100 mg PO .PRN PRN 14 tabs 3RF sexual activity 30 days NS Discontinued sildenafil (Viagra) Take one tablet one hour prior to sexual activity not to exceed more than 2-3 tablets per week [id number] [facility][NOTE 3] [id number] Member [id number] Discontinued Reason: Doctor's Order 100 mg PO .PRN 90 days 48 tabs 0RF Patient Instructions: The patient had an opportunity to ask questions regarding the treatment plan. All questions were answered. Physical exam, labs, and imaging were discussed and reviewed in detail. As well as risks, benefits, and discussion of treatment choices. No major barriers to understanding were identified. The patient expressed understanding and agreement with the above treatment plan. The patient was made aware they should contact our office by phone for worsening of their current condition, the appearance of new symptoms, or with any questions or concerns. Compliance is encouraged with any medications and follow up testing that is ordered. It is a privilege to be allowed the opportunity to participate in? your urological care.? Again, if you have any questions or concerns If you have any questions or concerns please do not hesitate to contact me. The office is [phone]. This note is constructed using voice recognition software. While every effort has been made to ensure accuracy medical transcription radiology errors may have been included. Yours sincerely, LORENZA Escalante Coding Level of Care Code Est Pt Level 3 (24313) Diagnoses Erectile disorder N52.9
== END 2024-01-29 08:36 | disposition home or self-care (01) ==
PROVIDERS: PCP Internal Medicine; Visit Provider Nurse Practitioner Family
DX: Z13.9 Encounter for screening, unspecified (principal); N52.9 Male erectile dysfunction, unspecified
CPT/HCPCS: 99213

== ENCOUNTER → 2024-01-29 07:53 | Outpatient (BNVA) | payer OTHER, SELFPAY | PROVIDERS: PCP Internal Medicine; Visit Provider Nurse Practitioner Family | DX: N52.9 Male erectile dysfunction, unspecified (principal) | CPT/HCPCS: 81003; 99212 ==

== ENCOUNTER 2024-02-29 09:51 | Outpatient (AMB) | payer OTHER, SELFPAY ==
[2024-02-29 09:53] VITALS: BP 122/70; PULSE 85; O2SAT 98; BMI 27.4
--- NOTE | 2024-02-29 09:53 | MHC.PC.OV ---
Vital Signs 02/29/24 09:53 Height 5 ft 8 in Weight 180 lb 2 oz BMI 27.4 BP 122/70 Blood Pressure Location Rt brachial Position Sitting Pulse 85 Pulse Source Pulse Oximeter Pulse Oximetry (%) 98 Oxygen Delivery Method Room Air Intake Visit Reasons: Annual PE Allergies No Known Allergies Allergy (Verified 02/29/24 09:53) Medication List - Last Reconciled 02/29/24 by Trevor Jacob MD [Blood pressure monitor As directed] losartan-hydrochlorothiazide 50-12.5 mg 1 tab PO DAILY omeprazole 20 mg PO DAILY 90 days simvastatin 40 mg PO DAILY Viagra (sildenafil) 100 mg PO .PRN PRN 30 days NS Tobacco use date assessed: 02/29/24 Fall risk assessment: No Falls in past year Last assessed Fall Risk: 02/29/24 Dental Screening Dental Screen Date: 02/29/24 Did you have a dental visit in the last 12 months?: Yes Did you have a dental problem in the last 6 months where you did not have access to dental care?: No Was dental information given to patient?: Patient has dentist HPI Annual PE HPI Details Physical exam appointment Labs will be due in March Blood pressure is well-controlled GERD is stable Patient is taking all his medications Smoker half a pack per day and has been smoking since he was in his teens says that he is coughing frequently Patient denies it. Explained to them that he most likely have COPD and this is due to chronic bronchitis It is important that he stopped smoking as soon as possible Offer no complaints Decline colonoscopy and Cologuard Follow-up 4 months [facility] Family History Sister Breast cancer Social History Housing: House Alcohol intake: former Patient Tobacco Use Status: Current everyday Tobacco user Cigarette Packs Per Day: 0.5 Cigarettes Per Day: 10 e-Cigarette/Vaping Use: Never Used Current occupational status: employed Cognitive needs: No Hearing needs: No Vision needs: Yes Questionnaire PHQ-9 Over the last 2 weeks, how often have you been bothered by any of the following problems? 1. Little interest or pleasure in doing things: not at all 2. Feeling down, depressed, or hopeless: not at all 3. Trouble falling or staying asleep, or sleeping too much: not at all 4. Feeling tired or having little energy: not at all 5. Poor appetite or overeating: not at all 6. Feeling bad about yourself - or that you are a failure or have let yourself or your family down: not at all 7. Trouble concentrating on things, such as reading the newspaper or watching television: not at all 8. Moving or speaking so slowly that other people could have noticed. Or the opposite - being so fidgety or restless that you have been moving around a lot more than usual: not at all 9. Thoughts that you would be better off or of hurting yourself in some way: not at all Total score: 0 Depression Screening Interpretation: Negative Depression Screening Done: Yes 62189 - PHQ-9 Billing: Yes Source: Developed by Drs. Ganga Green, Chayito Godinez, Yves Messer and colleagues, with an educational cee from [employer]. Thrive Questionnaire Date Thrive assessed: 02/29/24 I am a: Patient What is your living situation today?: I have a steady place to live Within the past 12 months, did the food you bought not last and you didn't have the money to get more?: Never true Within the past 12 months, did you worry whether your food would run out before you got money to buy more?: Never true Do you have trouble paying for medicines?: No Do you have trouble getting transportation to medical appointments?: No Do you have trouble paying your heating and electricity bill?: No Do you have trouble taking care of your child, family member or friend?: No Do you have trouble with day-to-day activities such as bathing, preparing meals, shopping, managing finances, etc.?: No Are you currently unemployed and looking for a job?: No Are you interested in more education?: No Please select the resources that you would like help with: None Currently or been in a relationship where the following occur: No concerns reported THRIVE Score: 0 AUDIT C Alcohol Use Questionnaire (AUDIT-C) 1. How often do you have a drink containing alcohol?: Never 3. How often do you have six or more drinks on one occasion?: Never Total Score: 0 Score Reviewed/Action Taken: Yes CARLOZ-7 AMB Questionnaire CARLOZ-7 Date CARLOZ - 7 assessed: 02/29/24 Feeling nervous, anxious, or on edge: 0 = Not at all Not being able to stop or control worryin = Not at all Worrying too much about different things: 0 = Not at all Trouble relaxin = Not at all Being so restless that it is hard to sit still: 0 = Not at all Becoming easily annoyed or irritable: 0 = Not at all Feeling afraid as if something awful might happen: 0 = Not at all Total CARLOZ-7 score (0-4 normal; 5-9 mild; 10-14 moderate; 15-21 severe): 0 Source: Developed by Drs. Ganga Green, Chayito Godinez, Yves Messer and colleagues, with an educational cee from [employer]. CARLOZ-7 Assessment Billing CARLOZ-7 Assessment Tool: CARLOZ-7 Assessment 53613 Review of Systems Const Denies chills, Denies fever(s) and Denies headache(s) Eyes Denies blurry vision ENT Denies headache(s), Denies nasal discharge, Denies nasal obstruction, Denies odynophagia and Denies sinus pain Card Denies chest pain at rest and Denies chest pain with activity Resp Denies hemoptysis GI Denies diarrhea, Denies odynophagia, Denies vomiting and Denies hematemesis Reports as per HPI Musc Denies abnormal gait Skin/Breast Reports as per HPI Neuro Denies Neuro-related abnormal movements, Denies Abnormal speech present, Denies abnormal gait, Denies headache(s) and Denies Sensory deficit (Neuro) Psych Denies mood swings and Denies paranoia Endo Reports as per HPI Michael/Lymph Reports as per HPI Aller/Immun Reports as per HPI Physical exam (Primary Care) Vital Signs: Last Vital Signs Pulse 85 02/29/24 09:53 BP 122/70 02/29/24 09:53 Pulse Ox 98 02/29/24 09:53 Oxygen Delivery Method Room Air 02/29/24 09:53 BMI result Body Mass Index 27.4 Tobacco/Smoking Status: Tobacco use Status Tobacco use date assessed 02/29/24 02/29/24 09:55 Patient Tobacco Use Status Current everyday Tobacco 02/29/24 09:55 e-Cigarette/Vaping Use Never Used 02/29/24 09:55 Are you ready to quit: No Tobacco cessation counseling provided: Yes Items discussed: Nicotine replacement CPT code: 45186 - 4-10 Minutes PHQ-9: PHQ-9 Score PHQ-9: Total score 0 02/29/24 10:08 Depression Screening Interpretation: Negative Thrive Assessment: Date of Thrive Assessment Date Thrive assessed 02/29/24 02/29/24 09:55 Currently or been in a relationship where the following occur: No concerns reported Const General: cooperative, comfortable and no acute distress Orientation/consciousness: patient oriented x3 HENMT Head: Yes normocephalic and Yes atraumatic Eyes General: appearance normal, both eyes and all related structures Pupils: Equal, round and reactive pupils present EOM: EOMs intact bilaterally Neck Neck: Yes supple and No lymphadenopathy Thyroid: Thyroid normal Lymphatic: no lymphadenopathy noted Resp Effort & Inspection: normal respiratory effort and able to speak in complete sentences Auscultation: clear to auscultation bilaterally Cardio Heart sounds: S1 normal heart sound present and S2 normal heart sound present GI Palpation (GI): Soft to palpation and nontender Auscultation: normal bowel sounds General: Yes no CVA tenderness Back/Spine/Pelvis Back: no CVA tenderness Skin General skin exam: elasticity normal and turgor normal Neuro General: patient oriented x3 and gait normal Cranial nerves: Yes Equal, round and reactive pupils present Speech: No Abnormal speech present Sensory Exam: No Sensory deficit (Neuro) Coordination: tandem gait normal and Romberg test negative Extrem General: Yes normal exam except as noted and No edema Coding Level of Care Code Est Pt Level 3 (02684) Est Pt Prev Care >65y(45053) Diagnoses Encounter for general adult medical examination with abnormal findings Z00.01 Smokers' cough J41.0 Tobacco abuse Z72.0 Hypertension, essential I10 Lipid disorder E78.9 Chronic GERD K21.9 Erectile disorder N52.9 Colonoscopy refused Z53.20 Additional Codes CARLOZ-7 Assessment Billing - CARLOZ-7 Assessment Tool: CARLOZ-7 Assessment 97202 ([id number]) PHQ-9 - 65468 - PHQ-9 Billing: Yes ([id number]) Vital Signs *Quality* - CPT code: 61964 - 4-10 Minutes ([id number]) Assessment & Plan Assessment & Plan (1) Encounter for general adult medical examination with abnormal findings: Code(s): Z00.01 - Encounter for general adult medical examination with abnormal findings Category: Medical (2) Smokers' cough: Code(s): J41.0 - Simple chronic bronchitis Category: Medical (3) Tobacco abuse: Code(s): Z72.0 - Tobacco use Category: Medical (4) Hypertension, essential: Code(s): I10 - Essential (primary) hypertension Category: Medical (5) Lipid disorder: Code(s): E78.9 - Disorder of lipoprotein metabolism, unspecified Category: Medical (6) Chronic GERD: Code(s): K21.9 - Gastro-esophageal reflux disease without esophagitis Category: Medical (7) Erectile disorder: Comment: Management through Urology Code(s): N52.9 - Male erectile dysfunction, unspecified Category: Medical (8) Colonoscopy refused: Code(s): Z53.20 - Procedure and treatment not carried out because of patient's decision for unspecified reasons Category: Medical Plan Physical exam appointment Labs will be due in March Blood pressure is well-controlled GERD is stable Patient is taking all his medications Smoker half a pack per day and has been smoking since he was in his teens says that he is coughing frequently Patient denies it. Explained to them that he most likely have COPD and this is due to chronic bronchitis It is important that he stopped smoking as soon as possible Offer no complaints Decline colonoscopy and Cologuard Follow-up 4 months
== END 2024-02-29 10:18 | disposition home or self-care (01) ==
PROVIDERS: PCP Internal Medicine; Visit Provider Internal Medicine
DX: Z00.01 Encounter for general adult medical examination with abnormal findings (principal); J41.0 Simple chronic bronchitis; Z72.0 Tobacco use; I10 Essential (primary) hypertension; E78.9 Disorder of lipoprotein metabolism, unspecified; K21.9 Gastro-esophageal reflux disease without esophagitis; N52.9 Male erectile dysfunction, unspecified; Z53.20 Procedure and treatment not carried out because of patient's decision for unspecified reasons

== ENCOUNTER → 2024-02-29 09:51 | Outpatient (BNVA) | payer OTHER, SELFPAY | PROVIDERS: PCP Internal Medicine; Visit Provider Internal Medicine | DX: Z00.01 Encounter for general adult medical examination with abnormal findings (principal); J41.0 Simple chronic bronchitis; I10 Essential (primary) hypertension; E78.9 Disorder of lipoprotein metabolism, unspecified; K21.9 Gastro-esophageal reflux disease without esophagitis; N52.9 Male erectile dysfunction, unspecified; Z72.0 Tobacco use; Z53.20 Procedure and treatment not carried out because of patient's decision for unspecified reasons | CPT/HCPCS: 96127; 99397 ==

== ENCOUNTER 2024-04-29 10:24 | Outpatient (AMB) | payer OTHER, SELFPAY ==
--- NOTE | 2024-04-29 10:27 | MHC.OFFVIS ---
Intake Visit Reasons: 3m follow up Intake Note: Patient is present for Follow up Urology Med: Sildenafil Antibiotic Allergy: None Blood Thinner: None Patient states that Sildenafil is not working for him. 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 Jacob who was accompanied by his at today's office visit. He has a past medical history of hypertension, GERD, erectile dysfunction, hyperlipidemia, and nicotine dependence. He presents to the office today for follow-up of his erectile dysfunction. In discussion with the patient today he reports he was unable to obtain non substitution Viagra and does not feel generic form to be helpful. He continues to experience issues maintaining erections that are adequate for penetration. We discussed further treatment options and risks and benefits of these treatment options. We also discussed importance of lifestyle modifications to assist with erectile dysfunction. PSA 01/14 1.8 We discussed at length potential causes of erectile dysfunction. When asked he denies any bothersome urinary issues or concerns. He denies urinary urgency, urinary frequency, incontinence, nocturia, hematuria, dysuria, foul smelling urine, changes to urinary stream, flank pain, fever, and or chills. He otherwise offers no other issues or concerns at this time. [facility] Family History Sister Breast cancer Social History Housing: House Alcohol intake: former Patient Tobacco Use Status: Current everyday Tobacco user Cigarette Packs Per Day: 0.5 Cigarettes Per Day: 10 e-Cigarette/Vaping Use: Never Used Current occupational status: employed Cognitive needs: No Hearing needs: No Vision needs: Yes Review of Systems Eyes Reports no additional complaints ENT Reports no additional complaints Card Reports as per HPI Resp Reports no additional complaints GI Reports as per HPI Reports as per HPI Musc Reports no additional complaints Neuro Reports no additional complaints Psych Reports no additional complaints Endo Reports no additional complaints Michael/Lymph Reports no additional complaints Aller/Immun Reports no additional complaints Physical Exam Const General: cooperative, comfortable, no acute distress, well developed, alert and awake Nutritional Appearance: thin Orientation/consciousness: patient oriented x3 Limitations: no limitations HEENT Head: Yes normal to inspection, Yes normocephalic and Yes atraumatic Ears: hearing grossly normal bilaterally Eyes General: appearance normal, both eyes and all related structures Neck Neck: Yes normal visual inspection and Yes trachea midline Chest Chest palpation & inspection: normal inspection of the chest Resp Effort & Inspection: normal respiratory effort and able to speak in complete sentences Cardio Rate: regular rate GI Inspection: Yes normal to inspection General: Yes no CVA tenderness Back/Spine/Pelvis Back: no CVA tenderness Skin General skin exam: no rashes or lesions noted Neuro General: patient oriented x3 Extrem General: Yes normal to inspection Psych Appearance: grossly normal and well kempt Mental Status: mental status grossly normal Speech and movement: Normal speech and movement present and Clear speech present Affect: normal affect Attitude: cooperative Thought process: Normal thought process present Thought content: Normal thought content present Insight: Fair insight present (Psych) Judgement: Fair judgement present (Psych) Assessment & Plan Assessment & Plan (1) Erectile disorder: Comment: Management through Urology Code(s): N52.9 - Male erectile dysfunction, unspecified Category: Medical (2) Nicotine dependence with current use: Code(s): F17.200 - Nicotine dependence, unspecified, uncomplicated Category: Medical Plan He denies any bothersome urinary issues. He reports be happy with current voiding parameters. Start 5 mg of Cialis daily. Prescription provided for p.r.n. dosing. Discussed at length lifestyle modifications to assist with erectile dysfunction We discussed potential causes of erectile dysfunction as well as further treatment options and risks and benefits of these treatment options. All questions were answered Discussed and educated on the importance of limiting/quitting nicotine dependence for overall health and well-being. Will obtain PSA Follow-up in 3 months with lab to be completed prior; or sooner with any issues, concerns, and or questions. Orders: Orders Prostate Specific Antigen Today N52.9 - Male erectile dysfunction, unspecified Medications: New tadalafil (Cialis) [facility] [address] [id number] 5 mg PO DAILY 90 days 90 tabs 1RF tadalafil (Cialis) administer approximately 30min before sexual activity; do not use more than 1 dose per 24hrs [facility] [address] [id number] 20 mg PO .PRN 90 days PRN 30 tabs 1RF sexual activity Discontinued Viagra (sildenafil) administer 30 minutes to 4 hours before activity [facility] [address] [id number] Discontinued Reason: Doctor's Order 100 mg PO .PRN 30 days PRN 14 tabs 3RF sexual activity NS Patient Instructions: The patient had an opportunity to ask questions regarding the treatment plan. All questions were answered. Physical exam, labs, and imaging were discussed and reviewed in detail. As well as risks, benefits, and discussion of treatment choices. No major barriers to understanding were identified. The patient expressed understanding and agreement with the above treatment plan. The patient was made aware they should contact our office by phone for worsening of their current condition, the appearance of new symptoms, or with any questions or concerns. Compliance is encouraged with any medications and follow up testing that is ordered. It is a privilege to be allowed the opportunity to participate in? your urological care.? Again, if you have any questions or concerns If you have any questions or concerns please do not hesitate to contact me. The office is [phone]. This note is constructed using voice recognition software. While every effort has been made to ensure accuracy underground distribution engineer errors may have been included. Yours sincerely, LORENZA Escalante Coding Level of Care Code Est Pt Level 4 (94986) Diagnoses Erectile disorder N52.9 Nicotine dependence with current use F17.200
== END 2024-04-29 10:55 | disposition home or self-care (01) ==
PROVIDERS: PCP Internal Medicine; Visit Provider Nurse Practitioner Family
DX: N52.9 Male erectile dysfunction, unspecified (principal); F17.200 Nicotine dependence, unspecified, uncomplicated
CPT/HCPCS: 99214

== ENCOUNTER → 2024-04-29 10:24 | Outpatient (BNVA) | payer OTHER, SELFPAY | PROVIDERS: PCP Internal Medicine; Visit Provider Nurse Practitioner Family ==

== ENCOUNTER 2024-07-29 11:42 | Outpatient (AMB) | payer OTHER, SELFPAY ==
--- NOTE | 2024-07-29 11:34 | A.OFFVIS_ITS ---
Intake Visit Reasons: 3m/PSA Intake Note: Patient presents today for follow up on: erectile dysfuntion and psa lab results PSA: 1.8 Urology Med: Tadalafil Antibiotic Allergy: None Blood Thinner: None [employer] Required: No Pocket Builder: Pocket Builder Present Accompanied by: Life Partner Allergies No Known Allergies Allergy (Verified 07/29/24 13:43) Medication List - Last Reconciled 07/29/24 by LORENZA Escalante [Blood pressure monitor As directed] losartan-hydrochlorothiazide 50-12.5 mg 1 tab PO DAILY omeprazole 20 mg PO DAILY 90 days simvastatin 40 mg PO DAILY tadalafil (Cialis) 5 mg PO DAILY 90 days tadalafil (Cialis) 20 mg PO .PRN PRN 90 days HPI Comments Details: Rodrigo is a very pleasant 69-year-old male patient of Dr. Jacob who was accompanied by his at today's office visit. He has a past medical history of hypertension, GERD, erectile dysfunction, hyperlipidemia, and nicotine dependence. He presents to the office today for follow-up of his erectile dysfunction. In discussion with the patient today he reports somewhat improvement in his erections with daily dosing of tadalafil as well as p.r.n. dosing prior to sexual activity. We discussed further treatment options of erectile dysfunction and risks and benefits of these treatment options. He would like to continue with current management. He otherwise denies any bothersome urinary issues. He denies urinary urgency, urinary frequency, incontinence, nocturia, hematuria, dysuria, foul smelling urine, changes to urinary stream, flank pain, fever, and or chills. Recent PSA results reviewed with the patient and his partner today as noted and trended below.... PSA 01/14 1.8, 07/15 1.8 We discussed at length potential causes of erectile dysfunction as well as lifestyle modifications to assist with erectile dysfunction. He otherwise offers no other issues or concerns at this time. Plan Following the visit, the plan for managing erectile dysfunction involves continuing tadalafil as prescribed. The patient is guided towards reducing nicotine use, noting the potential benefits on erectile function. We also discussed the option of penile injection therapy as a future alternative, valued for its direct administration and efficacy. The patient's prostate health remai ns stable with no further action at this time. Patient was informed and verbally consented to the use of an ambient scribe for clinic note documentation during this visit. Discussion Notes I reviewed multiple management options for erectile dysfunction discussing their efficacy and potential for improved outcomes compared to the current Cialis regimen. We acknowledged the benefits and limitations of each approach, ensuring the patient is informed of costs and prescription logistics. I emphasized that nicotine use negatively affects erectile function, recommending steps toward cessation or reduction. We revisited the commendable PSA results securing prostate well-being, committing to ongoing monitoring. PFSH Family History Sister Breast cancer Social History Housing: House Alcohol intake: former Patient Tobacco Use Status: Current everyday Tobacco user Cigarette Packs Per Day: 0.5 Cigarettes Per Day: 10 e-Cigarette/Vaping Use: Never Used Current occupational status: employed Cognitive needs: No Hearing needs: No Vision needs: Yes Review of Systems Eyes Reports no additional complaints ENT Reports no additional complaints Card Reports as per HPI Resp Reports no additional complaints GI Reports as per HPI Reports as per HPI Musc Reports no additional complaints Neuro Reports no additional complaints Psych Reports no additional complaints Endo Reports no additional complaints Michael/Lymph Reports no additional complaints Aller/Immun Reports no additional complaints Physical Exam Const General: cooperative, comfortable, no acute distress, well developed, alert and awake Nutritional Appearance: thin Orientation/consciousness: patient oriented x3 Limitations: no limitations HEENT Head: Yes normal to inspection, Yes normocephalic and Yes atraumatic Ears: hearing grossly normal bilaterally Eyes General: appearance normal, both eyes and all related structures Neck Neck: Yes normal visual inspection and Yes trachea midline Chest Chest palpation & inspection: normal inspection of the chest Resp Effort & Inspection: normal respiratory effort and able to speak in complete sentences Cardio Rate: regular rate GI Inspection: Yes normal to inspection General: Yes no CVA tenderness Back/Spine/Pelvis Back: no CVA tenderness Skin General skin exam: no rashes or lesions noted Neuro General: patient oriented x3 Extrem General: Yes normal to inspection Psych Appearance: grossly normal and well kempt Mental Status: mental status grossly normal Speech and movement: Normal speech and movement present and Clear speech present Affect: normal affect Attitude: cooperative Thought process: Normal thought process present Thought content: Normal thought content present Insight: Fair insight present (Psych) Judgement: Fair judgement present (Psych) Assessment & Plan Assessment & Plan (1) Erectile disorder: Comment: Management through Urology Code(s): N52.9 - Male erectile dysfunction, unspecified Category: Medical Plan Recent PSA results reviewed with the patient today; as noted above. We discussed at length potential causes of erectile dysfunction as well as further treatment options and risks and benefits of these treatment options. Will continue with Cialis as discussed and prescribed; refill provided. Recent PSA results reviewed with the patient today; as noted above. Discussed, educated, and stressed the importance of limiting/quitting nicotine dependence for overall health and well-being. We discussed lifestyle modifications to assist with ED. He otherwise denies any bothersome urinary issues. He reports be happy with current voiding parameters. Follow-up in 3-6 months; or sooner with any issues, concerns, and or questions. Orders: Orders AMB Urinalysis Automated Today Z13.9 - Encounter for screening, unspecified Medications: Refilled tadalafil (Cialis) [facility] [address] [id number] 5 mg PO DAILY 90 days 90 tabs 3RF tadalafil (Cialis) administer approximately 30min before sexual activity; do not use more than 1 dose per 24hrs [facility] Group [facility] [address] [id number] 20 mg PO .PRN 90 days PRN 30 tabs 1RF sexual activity Patient Instructions: The patient had an opportunity to ask questions regarding the treatment plan. All questions were answered. Physical exam, labs, and imaging were discussed and reviewed in detail. As well as risks, benefits, and discussion of treatment choices. No major barriers to understanding were identified. The patient expressed understanding and agreement with the above treatment plan. The patient was made aware they should contact our office by phone for worsening of their current condition, the appearance of new symptoms, or with any questions or concerns. Compliance is encouraged with any medications and follow up testing that is ordered. It is a privilege to be allowed the opportunity to participate in? your urological care.? Again, if you have any questions or co ncerns If you have any questions or concerns please do not hesitate to contact me. The office is [phone]. This note is constructed using voice recognition software. While every effort has been made to ensure accuracy cloth bale header errors may have been included. Yours sincerely, LORENZA Escalante Coding Level of Care Code Est Pt Level 3 (97130) Complex EM visit Add On G2211 Diagnoses Erectile disorder N52.9
== END 2024-07-29 12:21 | disposition home or self-care (01) ==
PROVIDERS: PCP Internal Medicine; Visit Provider Nurse Practitioner Family
DX: N52.9 Male erectile dysfunction, unspecified (principal)
CPT/HCPCS: 99213; G2211

== ENCOUNTER → 2024-07-29 11:42 | Outpatient (BNVA) | payer OTHER, SELFPAY | PROVIDERS: PCP Internal Medicine; Visit Provider Nurse Practitioner Family ==

== ENCOUNTER 2024-08-29 07:52 | Outpatient (AMB) | payer OTHER, SELFPAY ==
[2024-08-29 07:56] VITALS: BP 134/72; PULSE 74; RESP 17; TEMP 36.6; O2SAT 97; BMI 28.4
--- NOTE | 2024-08-29 07:56 | MHC.PC.OV ---
Vital Signs 08/29/24 07:56 Height 5 ft 8 in Weight 187 lb BMI 28.4 BP 134/72 Blood Pressure Location Lt brachial Position Sitting Respiration 17 Pulse 74 Pulse Source Pulse Oximeter Temp 97.8 F Temp Source Oral Pulse Oximetry (%) 97 Oxygen Delivery Method Room Air Intake Visit Reasons: 6 months follow up Allergies No Known Allergies Allergy (Verified 07/29/24 13:43) Medication List - Last Reconciled 08/29/24 by Trevor Jacob MD [Blood pressure monitor As directed] losartan-hydrochlorothiazide 50-12.5 mg 1 tab PO DAILY omeprazole 20 mg PO DAILY 90 days simvastatin 40 mg PO DAILY tadalafil (Cialis) 5 mg PO DAILY 90 days tadalafil (Cialis) 20 mg PO .PRN PRN 90 days Tobacco use date assessed: 08/29/24 Fall risk assessment: No Falls in past year Last assessed Fall Risk: 08/29/24 Dental Screening Dental Screen Date: 08/29/24 Did you have a dental visit in the last 12 months?: Yes Did you have a dental problem in the last 6 months where you did not have access to dental care?: Yes Was dental information given to patient?: Patient has dentist HPI 6 months follow up HPI Details Patient is 69-year-old gentleman came in for his six-month follow-up appointment with his girlfriend Continued to smoke and has started weeping nicotine to counteract the habit of holding a cigarette but still smoking as well We discussed the nicotine toxicity, patient is working on it Blood pressure is 134/72 ,patient is taking losartan hydrochlorothiazide 50-12.5 mg and tolerating medication He takes simvastatin 40 mg for lipid disorder Patient is on omeprazole for chronic GERD and is doing well He offers no complaints today Lab order placed, patient was notified to do labs every six-month before he comes in for a visit and do it fasting Has appointment set up end of February for physical exam PFSH Family History Sister Breast cancer Social History Housing: House Alcohol intake: former Patient Tobacco Use Status: Current everyday Tobacco user Cigarette Packs Per Day: 0.5 Cigarettes Per Day: 10 e-Cigarette/Vaping Use: Currently Using Current occupational status: employed Cognitive needs: No Hearing needs: No Vision needs: Yes Questionnaire PHQ-9 Over the last 2 weeks, how often have you been bothered by any of the following problems? 1. Little interest or pleasure in doing things: several days 2. Feeling down, depressed, or hopeless: not at all 3. Trouble falling or staying asleep, or sleeping too much: not at all 4. Feeling tired or having little energy: not at all 5. Poor appetite or overeating: not at all 6. Feeling bad about yourself - or that you are a failure or have let yourself or your family down: not at all 7. Trouble concentrating on things, such as reading the newspaper or watching television: not at all 8. Moving or speaking so slowly that other people could have noticed. Or the opposite - being so fidgety or restless that you have been moving around a lot more than usual: not at all 9. Thoughts that you would be better off or of hurting yourself in some way: not at all Total score: 1 Depression Screening Interpretation: Negative Depression Screening Done: Yes [id number] - PHQ-9 Billing: Yes Source: Developed by Drs. Ganga Green, Chayito Godinez, Yves Messer and colleagues, with an educational cee from [employer]. Thrive Questionnaire Date Thrive assessed: 08/29/24 I am a: Patient What is your living situation today?: I have a steady place to live Within the past 12 months, did the food you bought not last and you didn't have the money to get more?: Never true Within the past 12 months, did you worry whether your food would run out before you got money to buy more?: Never true Do you have trouble paying for medicines?: No Do you have trouble getting transportation to medical appointments?: No Do you have trouble paying your heating and electricity bill?: No Do you have trouble taking care of your child, family member or friend?: No Do you have trouble with day-to-day activities such as bathing, preparing meals, shopping, managing finances, etc.?: No Are you currently unemployed and looking for a job?: No Are you interested in more education?: No Please select the resources that you would like help with: None Currently or been in a relationship where the following occur: No concerns reported THRIVE Score: 0 AUDIT C Alcohol Use Questionnaire (AUDIT-C) 1. How often do you have a drink containing alcohol?: Never Total Score: 0 CARLOZ-7 AMB Questionnaire CARLOZ-7 Date CARLOZ - 7 assessed: 08/29/24 Feeling nervous, anxious, or on edge: 0 = Not at all Not being able to stop or control worryin = Not at all Worrying too much about different things: 0 = Not at all Trouble relaxin = Not at all Being so restless that it is hard to sit still: 0 = Not at all Becoming easily annoyed or irritable: 0 = Not at all Feeling afraid as if something awful might happen: 0 = Not at all Total CARLOZ-7 score (0-4 normal; 5-9 mild; 10-14 moderate; 15-21 severe): 0 Source: Developed by Drs. Ganga Green, Chayito Godinez, Yves Messer and colleagues, with an educational cee from [employer]. Review of Systems Const Denies chills and Denies fever(s) ENT Denies epistaxis and Denies nasal discharge Card Denies chest pain Resp Denies chest congestion, Denies cough and Denies hemoptysis GI Denies diarrhea and Denies nausea Skin/Breast Denies rash Neuro Reports no additional complaints Psych Reports no additional complaints Endo Reports no additional complaints Physical exam (Primary Care) Vital Signs: Last Vital Signs Temp 97.8 F 08/29/24 07:56 Pulse 74 08/29/24 07:56 Resp 17 08/29/24 07:56 BP 134/72 08/29/24 07:56 Pulse Ox 97 08/29/24 07:56 Oxygen Delivery Method Room Air 08/29/24 07:56 BMI result Body Mass Index 28.4 Tobacco/Smoking Status: Tobacco use Status Tobacco use date assessed 08/29/24 08/29/24 08:03 Patient Tobacco Use Status Current everyday Tobacco 08/29/24 08:03 e-Cigarette/Vaping Use Currently Using 08/29/24 08:03 PHQ-9: PHQ-9 Score PHQ-9: Total score 1 08/29/24 08:03 Depression Screening Interpretation: Negative Thrive Assessment: Date of Thrive Assessment Date Thrive assessed 08/29/24 08/29/24 08:03 Currently or been in a relationship where the following occur: No concerns reported Const General: cooperative, comfortable and no acute distress Orientation/consciousness: patient oriented x3 HENMT Head: Yes normocephalic Eyes General: appearance normal, both eyes and all related structures Neck Neck: Yes supple Resp Effort & Inspection: normal respiratory effort, no cough and no stridor Cardio Rhythm: regular rhythm Heart sounds: S1 normal heart sound present and S2 normal heart sound present Skin General skin exam: turgor normal Neuro General: patient oriented x3, tone normal and moves all extremities Extrem Right lower extremity: no edema Left lower extremity: no edema Coding Level of Care Code Est Pt Level 3 (91040) Complex EM visit Add On G2211 Diagnoses Lipid disorder E78.9 Chronic GERD K21.9 Hypertension, essential I10 Nicotine dependence with current use F17.200 Erectile disorder N52.9 Smokers' cough J41.0 Overweight (BMI 25.0-29.9) E66.3 Additional Codes PHQ-9 - 12652 - PHQ-9 Billing: Yes ([id number]) Assessment & Plan Assessment & Plan (1) Lipid disorder: Code(s): E78.9 - Disorder of lipoprotein metabolism, unspecified Category: Medical (2) Chronic GERD: Code(s): K21.9 - Gastro-esophageal reflux disease without esophagitis Category: Medical (3) Hypertension, essential: Code(s): I10 - Essential (primary) hypertension Category: Medical (4) Nicotine dependence with current use: Code(s): F17.200 - Nicotine dependence, unspecified, uncomplicated Category: Medical (5) Erectile disorder: Comment: Management through Urology Code(s): N52.9 - Male erectile dysfunction, unspecified Category: Medical (6) Smokers' cough: Code(s): J41.0 - Simple chronic bronchitis Category: Medical (7) Overweight (BMI 25.0-29.9): Code(s): E66.3 - Overweight Category: Medical Plan Patient is 69-year-old gentleman came in for his six-month follow-up appointment with his girlfriend Continued to smoke and has started weeping nicotine to counteract the habit of holding a cigarette but still smoking as well We discussed the nicotine toxicity, patient is working on it Blood pressure is 134/72 ,patient is taking losartan hydrochlorothiazide 50-12.5 mg and tolerating medication He takes simvastatin 40 mg for lipid disorder Patient is on omeprazole for chronic GERD and is doing well Taking Cialis through Urology He offers no complaints today Lab order placed, patient was notified to do labs every six-month before he comes in for a visit and do it fasting Has appointment set up end of February for physical exam Orders: Orders Complete Blood Count Auto Diff Today E66.3 - Overweight, E78.9 - Disorder of lipoprotein metabolism, unspecified, F17.200 - Nicotine dependence, unspecified, uncomplicated, I10 - Essential (primary) hypertension, J41.0 - Simple chronic bronchitis, K21.9 - Gastro-esophageal reflux disease without esophagitis, N52.9 - Male erectile dysfunction, unspecified Comprehensive [place]. Panel Fast Today E66.3 - Overweight, E78.9 - Disorder of lipoprotein metabolism, unspecified, F17.200 - Nicotine dependence, unspecified, uncomplicated, I10 - Essential (primary) hypertension, J41.0 - Simple chronic bronchitis, K21.9 - Gastro-esophageal reflux disease without esophagitis, N52.9 - Male erectile dysfunction, unspecified Lipid Panel Today E66.3 - Overweight, E78.9 - Disorder of lipoprotein metabolism, unspecified, F17.200 - Nicotine dependence, unspecified, uncomplicated, I10 - Essential (primary) hypertension, J41.0 - Simple chronic bronchitis, K21.9 - Gastro-esophageal reflux disease without esophagitis, N52.9 - Male erectile dysfunction, unspecified
== END 2024-08-29 08:53 | disposition home or self-care (01) ==
PROVIDERS: PCP Internal Medicine; Visit Provider Internal Medicine
DX: E78.9 Disorder of lipoprotein metabolism, unspecified (principal); J41.0 Simple chronic bronchitis; K21.9 Gastro-esophageal reflux disease without esophagitis; I10 Essential (primary) hypertension; F17.200 Nicotine dependence, unspecified, uncomplicated; N52.9 Male erectile dysfunction, unspecified; E66.3 Overweight

== ENCOUNTER → 2024-08-29 07:52 | Outpatient (BNVA) | payer MEDICARE, SELFPAY | PROVIDERS: PCP Internal Medicine; Visit Provider Internal Medicine | DX: K21.9 Gastro-esophageal reflux disease without esophagitis (principal); E78.9 Disorder of lipoprotein metabolism, unspecified; I10 Essential (primary) hypertension; N52.9 Male erectile dysfunction, unspecified; J41.0 Simple chronic bronchitis; E66.3 Overweight; F17.210 Nicotine dependence, cigarettes, uncomplicated; Z68.28 Body mass index [BMI] 28.0-28.9, adult | CPT/HCPCS: 96127; 99212 ==

== ENCOUNTER 2024-10-29 09:18 | Outpatient (AMB) | payer OTHER, SELFPAY ==
--- NOTE | 2024-10-29 09:31 | A.OFFVIS_ITS ---
Intake Visit Reasons: 3m follow up Intake Note: Patient presents today for follow up on: erectile dysfuntion and psa lab results PSA: 2.5 Urology Med: Tadalafil Antibiotic Allergy: None Blood Thinner: None Emergency Management Coordinator Required: No Tune Up Mechanic: Tune Up Mechanic Present Accompanied by: Life Partner Allergies No Known Allergies Allergy (Verified 10/29/24 10:01) Medication List - Last Reconciled 10/29/24 by LORENZA Escalante [Blood pressure monitor As directed] losartan-hydrochlorothiazide 50-12.5 mg 1 tab PO DAILY omeprazole 20 mg PO DAILY 90 days simvastatin 40 mg PO DAILY tadalafil (Cialis) 5 mg PO DAILY 90 days tadalafil (Cialis) 20 mg PO .PRN PRN 90 days HPI Comments Details: Rodrigo is a very pleasant 69-year-old male patient of Dr. Jacob who was accompanied by his at today's office visit. He has a past medical history of hypertension, GERD, erectile dysfunction, hyperlipidemia, and nicotine dependence. He presents to the office today for follow-up of his erectile dysfunction. In discussion with the patient today he reports somewhat improvement in his erections with daily dosing of tadalafil as well as p.r.n. dosing prior to sexual activity. We discussed further treatment options of erectile dysfunction and risks and benefits of these treatment options. He would like to continue with current management. He otherwise denies any bothersome urinary issues. He denies urinary urgency, urinary frequency, incontinence, nocturia, hematuria, dysuria, foul smelling urine, changes to urinary stream, flank pain, fever, and or chills. Recent PSA results reviewed with the patient and his partner today as noted and trended below.... PSA 01/14 1.8, 07/15 1.8, 11/14 2.5 We discussed at length potential causes of erectile dysfunction as well as lifestyle modifications to assist with erectile dysfunction. He does report feeling brand name Viagra was more helpful however it is too expensive and not covered by insurance. He discusses feeling generic Viagra has not been helpful in treatment of his erectile dysfunction. He otherwise offers no other issues or concerns at this time. Plan Following the visit, the plan for managing erectile dysfunction involves continuing tadalafil as prescribed. The patient is guided towards reducing n icotine use, noting the potential benefits on erectile function. We also discussed the option of penile injection therapy as a future alternative, valued for its direct administration and efficacy. The patient's prostate health remains stable with no further action at this time. Patient was informed and verbally consented to the use of an ambient scribe for clinic note documentation during this visit. Discussion Notes I reviewed multiple management options for erectile dysfunction discussing their efficacy and potential for improved outcomes compared to the current Cialis regimen. We acknowledged the benefits and limitations of each approach, ensuring the patient is informed of costs and prescription logistics. I emphasized that nicotine use negatively affects erectile function, recommending steps toward cessation or reduction. We revisited the commendable PSA results securing prostate well-being, committing to ongoing monitoring. PFSH Family History Sister Breast cancer Social History Housing: House Alcohol intake: former Patient Tobacco Use Status: Current everyday Tobacco user Cigarette Packs Per Day: 0.5 Cigarettes Per Day: 10 e-Cigarette/Vaping Use: Currently Using Current occupational status: employed Cognitive needs: No Hearing needs: No Vision needs: Yes Review of Systems Eyes Reports no additional complaints ENT Reports no additional complaints Card Reports as per HPI Resp Reports no additional complaints GI Reports as per HPI Reports as per HPI Musc Reports no additional complaints Neuro Reports no additional complaints Psych Reports no additional complaints Endo Reports no additional complaints Michael/Lymph Reports no additional complaints Aller/Immun Reports no additional complaints Physical Exam Const General: cooperative, comfortable, no acute distress, well developed, alert and awake Orientation/consciousness: patient oriented x3 Limitations: no limitations HEENT Head: Yes normal to inspection, Yes normocephalic and Yes atraumatic Ears: hearing grossly normal bilaterally Eyes General: appearance normal, both eyes and all related structures Neck Neck: Yes normal visual inspection and Yes trachea midline Chest Chest palpation & inspection: normal inspection of the chest Resp Effort & Inspection: normal respiratory effort and able to speak in complete sentences Cardio Rate: regular rate GI Inspection: Yes normal to inspection General: Yes no CVA tenderness Back/Spine/Pelvis Back: no CVA tenderness Skin General skin exam: no rashes or lesions noted Neuro General: patient oriented x3 Extrem General: Yes normal to inspection Psych Appearance: grossly normal and well kempt Mental Status: mental status grossly normal Speech and movement: Normal speech and movement present and Clear speech present Affect: normal affect Attitude: cooperative Thought process: Normal thought process present Thought content: Normal thought content present Insight: Fair insight present (Psych) Judgement: Fair judgement present (Psych) Assessment & Plan Assessment & Plan (1) Erectile disorder: Comment: Management through Urology Code(s): N52.9 - Male erectile dysfunction, unspecified Category: Medical Plan Recent PSA results reviewed with the patient today; as noted above. We discussed at length potential causes of erectile dysfunction as well as further treatment options and risks and benefits of these treatment options. Will continue with Cialis as discussed and prescribed. Discussed, educated, and stressed the importance of limiting/quitting nicotine dependence for overall health and well-being. We discussed lifestyle modifications to assist with ED. He otherwise denies any bothersome urinary issues. He reports be happy with current voiding parameters. Follow-up in 4-6 months; or sooner with any issues, concerns, and or questions. Orders: Orders Prostate Specific Antigen 6 Months N52.9 - Male erectile dysfunction, unspecified Patient Instructions: The patient had an opportunity to ask questions regarding the treatment plan. All questions were answered. Physical exam, labs, and imaging were discussed and reviewed in detail. As well as risks, benefits, and discussion of treatment choices. No major barriers to understanding were identified. The patient expressed understanding and agreement with the above treatment plan. The patient was made aware they should contact our office by phone for worsening of their current condition, the appearance of new symptoms, or with any questions or concerns. Compliance is encouraged with any medications and follow up testing that is ordered. It is a privilege to be allowed the opportunity to participate in? your urological care.? Again, if you have any questions or concerns If you have any questions or concerns please do not hesitate to contact me. The office is [phone]. This note is constructed using voice recognition software. While every effort has been made to ensure accuracy press tender long goods errors may have been included. Yours sincerely, EDUIN Escalante-BC Coding Level of Care Code Est Pt Level 3 (67019) Complex EM visit Add On G2211 Diagnoses Erectile disorder N52.9
== END 2024-10-29 10:07 | disposition home or self-care (01) ==
LOC: HO.HUSH 09:18
PROVIDERS: PCP Internal Medicine; Visit Provider Nurse Practitioner Family
DX: N52.9 Male erectile dysfunction, unspecified (principal)
CPT/HCPCS: 99213; G2211

== ENCOUNTER 2025-02-25 10:15 | Outpatient (AMB) | payer OTHER, SELFPAY ==
--- NOTE | 2025-02-25 10:18 | MHC.OFFVIS ---
Intake Visit Reasons: 4m/PSA Intake Note: Patient is present for 4M/PSA Urology Medication:TADALAFIL Antibiotic Allergy:NONE Blood Thinner:NONE TODAY'S PVR:7ML'S Insurance Healthcare Representative Required: No Allergies No Known Allergies Allergy (Verified 02/25/25 10:53) Medication List - Last Reconciled 02/25/25 by EDUIN Escalante-BC [Blood pressure monitor As directed] losartan-hydrochlorothiazide 50-12.5 mg 1 tab PO DAILY 90 days omeprazole 20 mg PO DAILY 90 days simvastatin 40 mg PO DAILY tadalafil (Cialis) 5 mg PO DAILY 90 days tadalafil (Cialis) 20 mg PO .PRN PRN 90 days HPI Comments Details: Rodrigo is a very pleasant 70-year-old male patient of Dr. Jacob who was accompanied by his at today's office visit. He has a past medical history of hypertension, GERD, erectile dysfunction, hyperlipidemia, and nicotine dependence. He presents to the office today for follow-up of his erectile dysfunction. In discussion with the patient today he reports to be doing and feeling well. He denies having had any bothersome urological issues or concerns since his last office visit here. He reports compliance with daily dosing of tadalafil as prescribed. Most recent PSA results reviewed with the patient today as noted and trended below. We discussed further treatment options of erectile dysfunction and risks and benefits of these treatment options. He would like to continue with current management. He otherwise denies any bothersome urinary issues. He denies urinary urgency, urinary frequency, incontinence, nocturia, hematuria, dysuria, foul smelling urine, changes to urinary stream, flank pain, fever, and or chills. Labs are as follows: PSA 01/14 1.8, 07/15 1.8, 11/14 2.5, 02/14 2.7 We discussed at length potential causes of erectile dysfunction as well as lifestyle modifications to assist with erectile dysfunction. He does report feeling brand name Viagra was more helpful however it is too expensive and not covered by insurance. He otherwise offers no other issues or concerns at this time. Discussion Notes I reviewed multiple management options for erectile dysfunction discussing their efficacy and potential for improved outcomes compared to the current Cialis regimen. We acknowledged the benefits and limitations of each approach, ensuring the patient is informed of costs and prescription logistics. I emphasized that nicotine use negatively affects erectile function, recommending steps toward cessation or reduction. PFSH Family History Sister Breast cancer Social History Housing: House Alcohol intake: former Patient Tobacco Use Status: Current everyday Tobacco user Cigarette Packs Per Day: 0.5 Cigarettes Per Day: 10 e-Cigarette/Vaping Use: Currently Using Current occupational status: employed Cognitive needs: No Hearing needs: No Vision needs: Yes Review of Systems Eyes Reports no additional complaints ENT Reports no additional complaints Card Reports as per HPI Resp Reports no additional complaints GI Reports as per HPI Reports as per HPI Musc Reports no additional complaints Neuro Reports no additional complaints Psych Reports no additional complaints Endo Reports no additional complaints Michael/Lymph Reports no additional complaints Aller/Immun Reports no additional complaints Physical Exam Const General: cooperative, comfortable, no acute distress, well developed, alert and awake Orientation/consciousness: patient oriented x3 Limitations: no limitations HEENT Head: Yes normal to inspection, Yes normocephalic and Yes atraumatic Ears: hearing grossly normal bilaterally Eyes General: appearance normal, both eyes and all related structures Neck Neck: Yes normal visual inspection and Yes trachea midline Chest Chest palpation & inspection: normal inspection of the chest Resp Effort & Inspection: normal respiratory effort and able to speak in complete sentences Cardio Rate: regular rate GI Inspection: Yes normal to inspection General: Yes no CVA tenderness Back/Spine/Pelvis Back: no CVA tenderness Skin General skin exam: no rashes or lesions noted Neuro General: patient oriented x3 Extrem General: Yes normal to inspection Psych Appearance: grossly normal and well kempt Mental Status: mental status grossly normal Speech and movement: Normal speech and movement present and Clear speech present Affect: normal affect Attitude: cooperative Thought process: Normal thought process present Thought content: Normal thought content present Insight: Fair insight present (Psych) Judgement: Fair judgement present (Psych) Office Procedures Post Void Residual Post Residual Void Post Void Residual (PVR): 7 [id number] Void Residual by ultrasound Assessment & Plan Assessment & Plan (1) Erectile disorder: Comment: Management through Urology Code(s): N52.9 - Male erectile dysfunction, unspecified Category: Medical Plan Unable to obtain urine for urinalysis as patient unable to void however PVR 7 mL. Most recent PSA results reviewed with the patient today; as noted above. We did discussed potential causes of ED as well as further treatment options and risks and benefits of these treatment options. Patient would like to continue with current management. He currently denies any bothersome urinary issues or concerns He reports be happy with current voiding parameters. We did discussed the importance of limiting/quitting nicotine dependence for urological health as well as overall health and well-being. All questions were answered. Will obtain PSA and testosterone in 6 months Follow-up in 6 months with PSA and testosterone; or sooner with any issues, concerns, and or questions. Orders: Orders Prostate Specific Antigen 6 Months N52.9 - Male erectile dysfunction, unspecified Testosterone, Free/Total 6 Months N52.9 - Male erectile dysfunction, unspecified Patient Instructions: The patient had an opportunity to ask questions regarding the treatment plan. All questions were answered. Physical exam, labs, and imaging were discussed and reviewed in detail. As well as risks, benefits, and discussion of treatment choices. No major barriers to understanding were identified. The patient expressed understanding and agreement with the above treatment plan. The patient was made aware they should contact our office by phone for worsening of their current condition, the appearance of new symptoms, or with any questions or concerns. Compliance is encouraged with any medications and follow up testing that is ordered. It is a privilege to be allowed the opportunity to participate in? your urological care.? Again, if you have any questions or concerns If you have any questions or concerns please do not hesitate to contact me. The office is [phone]. This note is constructed using voice recognition software. While every effort has been made to ensure accuracy engineer intern errors may have been included. Yours sincerely, LORENZA Escalante Coding Level of Care Code Est Pt Level 3 (50844) Complex EM visit Add On G2211 Diagnoses Erectile disorder N52.9 CPT Codes Post Residual Void - PVR CPT Code: [id number]-[id number] Void Residual by ultrasound ([id number])
== END 2025-02-25 10:46 | disposition home or self-care (01) ==
LOC: HO.HUSH 10:16
PROVIDERS: PCP Internal Medicine; Visit Provider Nurse Practitioner Family
DX: N52.9 Male erectile dysfunction, unspecified (principal)
CPT/HCPCS: 99213; G2211

== ENCOUNTER → 2025-02-25 10:15 | Outpatient (BNVA) | payer OTHER, SELFPAY | PROVIDERS: PCP Internal Medicine; Visit Provider Nurse Practitioner Family | DX: N52.9 Male erectile dysfunction, unspecified (principal) | CPT/HCPCS: 51798 ==

== ENCOUNTER 2025-03-11 10:01 | Outpatient (AMB) | payer OTHER, SELFPAY ==
[2025-03-11 10:07] VITALS: BP 130/72; PULSE 78; O2SAT 96; BMI 27.5
--- NOTE | 2025-03-11 10:07 | A.OFFPC_ITS ---
Vital Signs 03/11/25 10:07 Height 5 ft 8 in Weight 181 lb BMI 27.5 BP 130/72 Blood Pressure Location Lt brachial Position Sitting Pulse 78 Pulse Source Pulse Oximeter Pulse Oximetry (%) 96 Intake Visit Reasons: Annual PE Allergies No Known Allergies Allergy (Verified 03/11/25 10:08) Medication List - Last Reconciled 03/11/25 by Trevor Jacob MD [Blood pressure monitor As directed] losartan-hydrochlorothiazide 50-12.5 mg 1 tab PO DAILY 90 days omeprazole 20 mg PO DAILY 90 days simvastatin 40 mg PO DAILY tadalafil (Cialis) 5 mg PO DAILY 90 days tadalafil (Cialis) 20 mg PO .PRN PRN 90 days Tobacco use date assessed: 08/29/24 Fall risk assessment: No Falls in past year Last assessed Fall Risk: 03/11/25 Dental Screening Dental Screen Date: 08/29/24 HPI HPI Comments History of Present Illness Details History of Present Illness The patient is a 70-year-old male presenting for an annual physical exam. Tobacco Use Disorder: - The patient reports smoking approximat nae half a pack of cigarettes per day. - He confirms a smoking history of at le ast one pack per day for 30 years. - He previously stopped smoking for a co uple of years but has since resumed. Suspected Chronic Obstructive Pulmonary Disease: - The patient has a significant cough. c hronic - Based on his symptoms and smoking hist ory, there is a suspicion of COPD. Health Maintenance: - The patient has not had blood tests si nce October of last year. - He initially declined a colonoscopy fo r colon cancer screening but agreed to an alternative Cologuard test. - A lung cancer screening was discussed due to his significant smoking history. Gastroesophageal Reflux Disease: - The patient takes omeprazole for GERD and reports feeling well on the medication. Hyperlipidemia: - The patient is taking an statin, reza sterol medication. Medical History: - Gastroesophageal reflux disease - Hyperlipidemia - Patient denies anxiety related to [facility] visits. Health Maintenance - Colon Cancer Screening: The patient de clined a colonoscopy but agreed to undergo Cologuard testing. - Lung Cancer Screening: A lung cancer s creening was recommended and ordered due to the patient's age and extensive smoking history. - Laboratory Monitoring: An order for bl ood tests was placed, as the last labs were done in October of the previous year. - Pulmonary Function Test (PFT): A PFT w as recommended to assess lung function due to chronic cough and suspicion of COPD. - Vaccinations: The patient's vaccinatio n status for tetanus is unknown. [place] of Care - The patient receives care from a urolo gy specialist. PFSH Family History Sister Breast cancer Social History Housing: House Alcohol intake: former Patient Tobacco Use Status: Current everyday Tobacco user Cigarette Packs Per Day: 0.5 Cigarettes Per Day: 10 e-Cigarette/Vaping Use: Currently Using Current occupational status: employed Cognitive needs: No Hearing needs: No Vision needs: Yes Questionnaire Thrive Questionnaire Date Thrive assessed: 08/29/24 I am a: Patient What is your living situation today?: I have a steady place to live Within the past 12 months, did the food you bought not last and you didn't have the money to get more?: Never true Within the past 12 months, did you worry whether your food would run out before you got money to buy more?: Never true Do you have trouble paying for medicines?: No Do you have trouble getting transportation to medical appointments?: No Do you have trouble paying your heating and electricity bill?: No Do you have trouble taking care of your child, family member or friend?: No Do you have trouble with day-to-day activities such as bathing, preparing meals, shopping, managing finances, etc.?: No Are you currently unemployed and looking for a job?: No Are you interested in more education?: No Please select the resources that you would like help with: None Currently or been in a relationship where the following occur: No concerns reported THRIVE Score: 0 AUDIT C Alcohol Use Questionnaire (AUDIT-C) 3. How often do you have six or more drinks on one occasion?: Never Total Score: 0 CARLOZ-7 AMB Questionnaire CARLOZ-7 Date CARLOZ - 7 assessed: 08/29/24 Source: Developed by Drs. Ganga Green, Chayito Godinez, Yves Messer and colleagues, with an educational cee from [employer] ([email or web address]). Review of Systems Narrative Review of Systems - General: No fever no chills - Neurological: No headaches no dizziness - Ear nose throat: No sore throat no hearing difficulty no ear pain - Cardiovascular: No syncope, no chest pain, no palpitations - Gastrointestinal: No nausea vomiting or diarrhea - Endocrine: No polyuria polydipsia no heat intolerance - Genitourinary: No dysuria - Skin: No new complaints Physical exam (Primary Care) Vital Signs: Last Vital Signs Pulse 78 03/11/25 10:07 BP 130/72 03/11/25 10:07 Pulse Ox 96 03/11/25 10:07 BMI result Body Mass Index 27.5 Tobacco/Smoking Status: Tobacco use Status Tobacco use date assessed 08/29/24 03/11/25 10:08 Patient Tobacco Use Status Current everyday Tobacco 03/11/25 10:08 e-Cigarette/Vaping Use Currently Using 03/11/25 10:08 Thrive Assessment: Date of Thrive Assessment Date Thrive assessed 08/29/24 03/11/25 10:08 Currently or been in a relationship where the following occur: No concerns reported Narrative Physical Exam General: Cooperative, healthy appearing, comfortable, no acute distress Orientation: Patient oriented x3 Head: Normal to inspection Ears: Within normal limit visually Nose: Normal external nose present Face and sinus: Normal facial exam Eyes: Appearance normal, extraocular movement intact pupils reactive Neck: Normal visual inspection and supple Respiratory: Normal respiratory effort and able to speak in complete sentences. Clear to auscultation, no stridor Cardiovascular: S1 and S2 RRR GI: Normal to inspection. Soft to palpation and nontender Skin: Turgor normal, no acute findings Neuro: Patient oriented x3, motor sensory intact, balance intact, tandem pass Extremities: Normal to inspection . Coding Level of Care Code Est Pt Level 3 (85748) Est Pt Prev Care >65y(28154) Diagnoses Encounter for general adult medical examination with abnormal findings Z00.01 Hypertension, essential I10 Smokers' cough J41.0 Lipid disorder E78.9 Tobacco abuse Z72.0 Screening for lung cancer Z12.2 Chronic GERD K21.9 Assessment & Plan Assessment & Plan (1) Encounter for general adult medical examination with abnormal findings: Code(s): Z00.01 - Encounter for general adult medical examination with abnormal findings Category: Medical (2) Hypertension, essential: Code(s): I10 - Essential (primary) hypertension Category: Medical (3) Smokers' cough: Code(s): J41.0 - Simple chronic bronchitis Category: Medical (4) Lipid disorder: Code(s): E78.9 - Disorder of lipoprotein metabolism, unspecified Category: Medical (5) Tobacco abuse: Code(s): Z72.0 - Tobacco use Category: Medical (6) Screening for lung cancer: Code(s): Z12.2 - Encounter for screening for malignant neoplasm of respiratory organs Category: Medical (7) Chronic GERD: Code(s): K21.9 - Gastro-esophageal reflux disease without esophagitis Category: Medical Plan Patient Instructions - You will receive a Cologuard kit in the mail for colon cancer screening. - Please follow the kit's instructions to collect a stool sample and mail it back using the provided label. - Go to the lab on [facility] for your blood tests. as per your preference - Please make sure to ask the lab to fax your results to our office. - An order has been placed for a pulmonary function test to check your lung strength and for a lung cancer screening. - Please schedule a follow-up appointment in six months to review your results. - We will contact you sooner if any of your results require urgent attention. Orders: Orders PFT pulmonary function test Today J41.0 - Simple chronic bronchitis, Z72.0 - Tobacco use Referrals Lung Cancer Screening Referral Z12.2 - Encounter for screening for malignant neoplasm of respiratory organs Cologuard Test Z12.11 - Encounter for screening for malignant neoplasm of colon Medications: Refilled simvastatin 40 mg PO DAILY 90 tabs 1RF losartan-hydrochlorothiazide 50-12.5 mg 1 tab PO DAILY 90 tabs 1RF 90 days omeprazole 20 mg PO DAILY 90 caps 1RF 90 days
== END 2025-03-11 10:32 | disposition home or self-care (01) ==
LOC: HO.HMCC 10:02
PROVIDERS: PCP Internal Medicine; Visit Provider Internal Medicine
DX: Z00.01 Encounter for general adult medical examination with abnormal findings (principal); I10 Essential (primary) hypertension; J41.0 Simple chronic bronchitis; E78.9 Disorder of lipoprotein metabolism, unspecified; Z72.0 Tobacco use; Z12.2 Encounter for screening for malignant neoplasm of respiratory organs; K21.9 Gastro-esophageal reflux disease without esophagitis

== ENCOUNTER → 2025-03-11 10:01 | Outpatient (BNVA) | payer MEDICARE, SELFPAY | PROVIDERS: PCP Internal Medicine; Visit Provider Internal Medicine | DX: Z00.01 Encounter for general adult medical examination with abnormal findings (principal); I10 Essential (primary) hypertension; J41.0 Simple chronic bronchitis; E78.9 Disorder of lipoprotein metabolism, unspecified; Z12.2 Encounter for screening for malignant neoplasm of respiratory organs; K21.9 Gastro-esophageal reflux disease without esophagitis; F17.210 Nicotine dependence, cigarettes, uncomplicated | CPT/HCPCS: 99397 ==